=== PATIENT | male | born 1980 ===

== ENCOUNTER 2020-07-30 09:15 | Outpatient (REF) | payer OTHER, SELFPAY ==
--- NOTE | 2020-07-30 09:39 | XR_ITS ---
EXAMINATION: XR LUMBOSACRAL SPINE CLINICAL INFORMATION: Lower back pain COMPARISON: None TECHNIQUE: Three views of the lumbosacral spine. FINDINGS: No fracture or subluxation. Vertebral body height and alignment is maintained. Disc spaces are maintained. The sacroiliac joints are symmetric. The sacrum appears intact. The visualized bowel gas pattern is unremarkable. XR/XR lumbar spine 2-3V IMPRESSION: Normal appearance of the lumbar spine.
[2020-07-30 09:55] LABS: MANUAL DIFF FLAG NO
[2020-07-30 10:02] LABS: Basophils Absolute Auto 0.1 X10*3/uL (0.0-0.2); Basophils Percent Auto 0.8 % (0-2); Eosinophils Absolute Auto 0.2 X10*3/uL (0.0-0.4); Hematocrit 47.4 % (42-52); Imm Gran Abs Auto 0.01 X10*3/uL (0.00-0.03); Imm Gran Pct Auto 0.2 % (0.0-0.4); Lymphocytes Absolute Auto 2.6 X10*3/uL (1.2-4.9); Lymphocytes Percent Auto 42.4 % (20-40); Mean Corpuscular HGB Conc 35.9 g/dl (31.0-36.0); Mean Corpuscular Hemoglobin 31.1 pg (27.0-33.0); Mean Corpuscular Volume 86.8 fL (80-98); Mean Platelet Volume 10.5 fL (9.4-12.4); Monocytes Absolute Auto 0.4 X10*3/uL (0.1-1.2); Neutrophils Absolute Auto 2.8 X10*3/uL (2.0-8.3); Neutrophils Percent Auto 46.6 % (45-73); Platelet Count 264 X10*3/uL (160-400); Red Blood Count 5.46 X10*6/uL (4.60-5.80)
[2020-07-30 10:20] LABS: Glucose Urine UA NEG (NEG); Leukocyte Esterase Urine NEG (NEG); Nitrite Urine NEG (NEG); Specific Gravity - Urine 1.025 (1.005-1.025); Urine Blood TRACE (NEG); Urine Ketones NEG (NEG); Urine Protein NEG (NEG-TRACE)
[2020-07-30 10:23] LABS: Appearance Urine HAZY; Color Urine YELLOW
[2020-07-30 10:47] LABS: Alanine Aminotransferase 24 U/L (0-40); Albumin Level 4.4 g/dL (3.5-5.0); Alkaline Phosphatase 88 U/L (39-117); Anion Gap 12 (12-20); Aspartate Amino Transferase 22 U/L (5-37); Bilirubin Total 0.8 mg/dL (0.0-1.0); Blood Urea Nitrogen 11 mg/dL (9-16); Carbon Dioxide 26 mmol/L (22-29); Chloride 107 mmol/L (96-108); Cholesterol 181 mg/dL; Estimated Glomerular Filt Rate > 60; Glucose Fasting 93 mg/dL (60-99); HDL Cholesterol 27 mg/dL; LDL Cholesterol Calculated 114 mg/dl; Potassium 4.4 mmol/l (3.3-5.1); Sodium 141 mmol/L (135-145); Total Protein 7.5 g/dL (6.5-8.0); Triglycerides 204 mg/dL
[2020-07-30 10:53] LABS: Mucus Urine 2+ /LPF; RBC Urine 0-2 /HPF (0); Squamous Epithelial Cell Urine 1+ /LPF; WBC Urine 0 /HPF (0-4)
== END 2020-07-30 09:16 | disposition home or self-care (01) ==
LOC: HO.LAB 09:15
PROVIDERS: PCP Internal Medicine; Visit Provider Internal Medicine
DX: M54.5 Low back pain (principal); E78.5 Hyperlipidemia, unspecified; R30.0 Dysuria
CPT/HCPCS: 36415; 72100; 80053; 80061; 81001; 85025

== ENCOUNTER 2020-08-25 08:00 | Outpatient (RCR) | payer OTHER, SELFPAY ==
--- NOTE | 2020-09-10 15:07 | MHC.PT.DC ---
[facility] [place] Office [place] Office [place] Office [address] Atiya Saunders [address] [phone] F: [phone] F: [phone] F: [phone] F: [phone] Physical Therapy Discharge Report Diagnosis: LUMBAGO WITH SCIATICA RIGHT SIDE M54.41 OTHER CHRONIC PAIN G 89.29 Date of Surgery: NA Date of Evaluation: 08/11/20 Date of Discharge: Treatments to Date: 3 Cancellations to Date: 1 No Shows to Date: 4 Discharge Status: Visit Non-compliance Discharge Summary: NO SHOWED FOR 4 VISITS AND IS DCed PER DEPARTMENT POLICY Electronically signed by: Nancy Gan PT, DPT Please sign and return to therapist. Thank you for your referral.
== END 2020-09-10 15:09 | disposition other institution (70) ==
LOC: HO.PT 08:00
PROVIDERS: PCP Internal Medicine; Visit Provider Internal Medicine
DX: M54.5 Low back pain (principal)
CPT/HCPCS: 97014; 97110; 97140; 97162

== ENCOUNTER → 2020-11-18 13:56 | Outpatient (BNVA) | payer OTHER, SELFPAY | PROVIDERS: PCP Internal Medicine; Referring Provider Internal Medicine; Visit Provider Surgery | DX: D17.9 Benign lipomatous neoplasm, unspecified (principal) | CPT/HCPCS: 99202 ==

== ENCOUNTER 2020-12-03 07:53 | Outpatient (REF) | payer OTHER, SELFPAY ==
[2020-12-03 07:59] VITALS: BP 119/72; PULSE 74; RESP 16; TEMP 36.3; O2SAT 97
[2020-12-03 08:00] VITALS: BMI 28.6
[2020-12-03 08:44] VITALS: BP 114/60; PULSE 72; RESP 16; O2SAT 96
--- NOTE | 2020-12-03 08:44 | P.BOP_ITS ---
Brief Operative Note Date of Service: 12/03/20 Pre-op diagnosis: multiple lipomas lower back, right flank Post-op diagnosis: same Procedure: exc of multiple lipomas, lower back, right flank uner local anesthesia Surgeon: Miki Ward MD Anesthesia: local Was an General Office Worker used for this Procedure?: No Estimated blood loss (mL): 3 Pathology: other (lipomas) Condition: stable Disposition: other (home)
--- NOTE | 2020-12-03 08:46 | P.OP_ITS ---
Operative Note Operative Note Date of Service: 12/03/20 Narrative: Preop diagnosis: Multiple lipomas, lower back and right flank Postop diagnosis: Multiple lipomas, lower back x2 and right flank x1 Procedure: Excision of multiple lipomas, lower back x2 and right flank x1, under local anesthesia Surgeon: Miki Ward MD The patient is a 40-year-old male with multiple lipomas on the lower back in the right flank. He had 2 lipomatous masses on the left lower back and 1 lipomatous mass on the right flank that he wanted removed. He understood the technique of excision under local anesthesia. He was aware of the risks, benefits, and alternatives. He was brought to the minor procedure room. He was placed in prone position. He pointed to 2 lipomatous masses in the lower back a little to the left side. This area was prepped and draped. This to lipomas were adjacent to each other. I infiltrated the planned line of incisions. I made an incision in the skin using blade 15. And this was carried down through the full-thickness of skin and part of subcutaneous fat. Proceeded to gently dissect with the Metzenbaum scissors through the subcutaneous fat until I was able to visualize a lipomatous mass. I sharply dissected this off of the rest of subcu layer. I continued to dissect posteriorly until was able to deliver this lipomatous mass. This I was about 1.5 cm in diameter and was very cool in shape. There was note of an adjacent lipoma more laterally. I made incision in the skin overlying pegs lipomatous mass using blade 15 it was carried down to the full-thickness skin and part of the subcutaneous fat. I gently dissected with Metzenbaum scissors until was able to clearly see a lipomatous mass. I sharply dissected this of the rest of subcutaneous layer with Metzenbaum scissors. I proceeded to dissect posteriorly until was able to deliver this. This was a more of a lobulated lipoma, about 5 cm x 3 cm. I closed both incisions with multiple interrupted of 3-0 sutures. Dressings were applied The patient was then placed in left lateral decubitus position to expose the right flank. The lipoma on the right flank was localized and was prepped and draped lidocaine 1% was used for local anesthesia. I made an incision in the skin overlying this lipoma using blade 15. This carried down through the full- thickness skin and part of subcutaneous fat until was able to visualize the lipoma. I sharply dissected this off of the rest of the subcutaneous layer until this was delivered and sent as specimen. The lipomas about 1.5 cm in diameter and was cervical as well. I closed the incision with multiple nylon 3- 0 interrupted sutures. Dressings were applied The patient tolerated well there were no complication noted. He was given wound care instructions and will be seen in the office for removal sutures.
== END 2020-12-03 07:54 | disposition home or self-care (01) ==
LOC: HO.MS 07:53
PROVIDERS: PCP Internal Medicine; Visit Provider Surgery
PROC: (CPT 21931; principal; 2020-12-03 08:00)
DX: D17.1 Benign lipomatous neoplasm of skin and subcutaneous tissue of trunk (principal)
CPT/HCPCS: 21931; 21930 ×2; 88304

== ENCOUNTER → 2020-12-16 11:43 | Outpatient (BNVA) | payer OTHER, SELFPAY | PROVIDERS: PCP Internal Medicine; Visit Provider Surgery | DX: Z48.817 Encounter for surgical aftercare following surgery on the skin and subcutaneous tissue (principal); Z87.2 Personal history of diseases of the skin and subcutaneous tissue | CPT/HCPCS: 99212 ==

== ENCOUNTER 2022-02-12 08:11 | Outpatient (REF) | payer OTHER, SELFPAY ==
[2022-02-12 08:25] LABS: MANUAL DIFF FLAG NO
[2022-02-12 08:28] LABS: Basophils Percent Auto 0.7 % (0-2); Eosinophils Absolute Auto 0.3 X10*3/uL (0.0-0.4); Eosinophils Percent Auto 4.1 % (0-4); Hematocrit 45.1 % (42.0-52.0); Hemoglobin 16.3 g/dl (14.0-18.0); Imm Gran Abs Auto 0.02 X10*3/uL (0.00-0.03); Imm Gran Pct Auto 0.3 % (0.0-0.4); Lymphocytes Absolute Auto 2.3 X10*3/uL (1.2-4.9); Lymphocytes Percent Auto 38.2 % (20-40); Mean Corpuscular HGB Conc 36.1 g/dl (31.0-36.0); Mean Corpuscular Hemoglobin 30.7 pg (27.0-33.0); Mean Corpuscular Volume 84.9 fL (80.0-98.0); Mean Platelet Volume 10.2 fL (9.4-12.4); Monocytes Absolute Auto 0.6 X10*3/uL (0.1-1.2); Neutrophils Absolute Auto 2.9 x10*3/uL (2.0-8.3); Neutrophils Percent Auto 47.7 % (45-73); Platelet Count 233 X10*3/uL (160-400); Red Blood Count 5.31 X10*6/uL (4.60-5.80); White Blood Count 6.1 X10*3/uL (4.8-10.8)
[2022-02-12 08:55] LABS: Estimated Average Glucose 97 mg/dL
[2022-02-12 08:58] LABS: Alanine Aminotransferase 42 U/L (0-40); Albumin Level 4.4 g/dL (3.5-5.0); Alkaline Phosphatase 91 U/L (39-117); Anion Gap 13 (12-20); Aspartate Amino Transferase 25 U/L (5-37); Bilirubin Total 0.6 mg/dL (0.0-1.0); Blood Urea Nitrogen 13 mg/dL (9-16); Calcium 9.2 mg/dL (8.4-10.2); Carbon Dioxide 24 mmol/L (22-29); Chloride 107 mmol/L (96-108); Cholesterol 215 mg/dL; Estimated Glomerular Filt Rate > 60; Glucose Fasting 105 mg/dL (60-99); HDL Cholesterol 23 mg/dL; Potassium 4.2 mmol/L (3.3-5.1); Sodium 140 mmol/L (135-145); Triglycerides 708 mg/dL
[2022-02-12 10:01] LABS: Appearance Urine CLEAR; Color Urine YELLOW; Glucose Urine UA NEG (NEG); Leukocyte Esterase Urine NEG (NEG); Nitrite Urine NEG (NEG); Specific Gravity - Urine 1.025 (1.005-1.025); Urine Blood NEG (NEG); Urine Ketones NEG (NEG); Urine Protein NEG (NEG-TRACE)
== END 2022-02-12 08:12 | disposition home or self-care (01) ==
LOC: HO.LAB 08:11
PROVIDERS: PCP Internal Medicine; Visit Provider Nurse Practitioner Family
DX: R35.89 Other polyuria (principal); R43.8 Other disturbances of smell and taste; E78.00 Pure hypercholesterolemia, unspecified; I10 Essential (primary) hypertension
CPT/HCPCS: 36415; 80053; 80061; 81003; 83036; 85025

== ENCOUNTER 2022-06-16 09:17 | Outpatient (REF) | payer OTHER, SELFPAY ==
--- NOTE | ~2022-06-16 | US_ITS ---
EXAMINATION: US ABDOMEN LIMITED CLINICAL INFORMATION: Umbilical hernia without obstruction or gangrene. COMPARISON: None TECHNIQUE: Real-time imaging of the umbilical region. FINDINGS: There is an umbilical hernia measuring 0.8 cm with peristalsing bowel seen within the defect. The neck measures approximately 0.7 cm wide. US/US abdomen limited IMPRESSION: Small umbilical hernia containing fat and peristalsing bowel.
== END 2022-06-16 09:18 | disposition home or self-care (01) ==
LOC: HO.US 09:17
PROVIDERS: PCP Internal Medicine; Visit Provider Internal Medicine
DX: K42.9 Umbilical hernia without obstruction or gangrene (principal)
CPT/HCPCS: 76705

== ENCOUNTER 2022-07-02 09:20 | Outpatient (REF) | payer OTHER, SELFPAY ==
[2022-07-02 09:29] LABS: MANUAL DIFF FLAG NO
[2022-07-02 10:02] LABS: Basophils Absolute Auto 0.1 X10*3/uL (0.0-0.2); Basophils Percent Auto 0.9 % (0-2); Eosinophils Absolute Auto 0.2 X10*3/uL (0.0-0.4); Eosinophils Percent Auto 3.4 % (0-4); Hematocrit 46.6 % (42.0-52.0); Hemoglobin 16.5 g/dl (14.0-18.0); Imm Gran Abs Auto 0.01 X10*3/uL (0.00-0.03); Imm Gran Pct Auto 0.2 % (0.0-0.4); Lymphocytes Absolute Auto 2.7 X10*3/uL (1.2-4.9); Lymphocytes Percent Auto 41.5 % (20-40); Mean Corpuscular HGB Conc 35.4 g/dl (31.0-36.0); Mean Corpuscular Hemoglobin 30.2 pg (27.0-33.0); Mean Corpuscular Volume 85.2 fL (80.0-98.0); Mean Platelet Volume 10.4 fL (9.4-12.4); Monocytes Absolute Auto 0.6 X10*3/uL (0.1-1.2); Monocytes Percent Auto 8.5 % (2-11); Neutrophils Percent Auto 45.5 % (45-73); Platelet Count 235 X10*3/uL (160-400); Red Blood Count 5.47 X10*6/uL (4.60-5.80); Red Cell Distribution Width 11.7 % (11.0-16.0); White Blood Count 6.5 X10*3/uL (4.8-10.8)
[2022-07-02 10:30] LABS: Alanine Aminotransferase 48 U/L (0-40); Albumin Level 4.2 g/dL (3.5-5.0); Alkaline Phosphatase 95 U/L (39-117); Anion Gap 10 (12-20); Aspartate Amino Transferase 27 U/L (5-37); Bilirubin Total 0.6 mg/dL (0.0-1.0); Blood Urea Nitrogen 11 mg/dL (9-16); Calcium 9.2 mg/dL (8.4-10.2); Carbon Dioxide 25 mmol/L (22-29); Chloride 108 mmol/L (96-108); Cholesterol 198 mg/dL; Estimated Glomerular Filt Rate > 60; Glucose Fasting 92 mg/dL (60-99); HDL Cholesterol 23 mg/dL; Potassium 4.4 mmol/L (3.3-5.1); Sodium 139 mmol/L (135-145); Total Protein 7.5 g/dL (6.5-8.0); Triglycerides 652 mg/dL
== END 2022-07-02 09:21 | disposition home or self-care (01) ==
LOC: HO.LAB 09:20
PROVIDERS: PCP Internal Medicine; Visit Provider Internal Medicine
DX: D64.9 Anemia, unspecified (principal); R42 Dizziness and giddiness; E78.5 Hyperlipidemia, unspecified
CPT/HCPCS: 36415; 80053; 80061; 85025

== ENCOUNTER 2022-12-03 07:58 | Outpatient (REF) | payer OTHER, SELFPAY ==
[2022-12-03 09:07] LABS: Alanine Aminotransferase 35 U/L (0-40); Albumin Level 4.2 g/dL (3.5-5.0); Alkaline Phosphatase 88 U/L (39-117); Anion Gap 12 (12-20); Aspartate Amino Transferase 28 U/L (5-37); Bilirubin Total 0.8 mg/dL (0.0-1.0); Blood Urea Nitrogen 12 mg/dL (9-16); Calcium 9.2 mg/dL (8.4-10.2); Carbon Dioxide 21 mmol/L (22-29); Chloride 111 mmol/L (96-108); Cholesterol 167 mg/dL; Estimated Glomerular Filt Rate > 60; Glucose Fasting 103 mg/dL (60-99); HDL Cholesterol 26 mg/dL; LDL Cholesterol Calculated 79 mg/dl; Potassium 4.3 mmol/L (3.3-5.1); Sodium 140 mmol/L (135-145); Total Protein 7.3 g/dL (6.5-8.0); Triglycerides 310 mg/dL
[2022-12-05 21:44] LABS: Antibody to SS-A Antigen <1.0 NEG AI (<1.0 NEG); Antibody to SS-B Antigen <1.0 NEG AI (<1.0 NEG)
== END 2022-12-03 07:59 | disposition home or self-care (01) ==
LOC: HO.LAB 07:58
PROVIDERS: PCP Internal Medicine; Visit Provider Internal Medicine
DX: E78.5 Hyperlipidemia, unspecified (principal); R68.2 Dry mouth, unspecified
CPT/HCPCS: 36415; 80053; 80061; 86235

== ENCOUNTER 2023-03-23 20:24 | Emergency (ER) | payer OTHER, SELFPAY ==
--- NOTE | ~2023-03-23 | CT_ITS ---
EXAMINATION: CT HEAD WITHOUT CONTRAST CLINICAL INFORMATION: Headache. Blurred vision. Dizziness. COMPARISON: None available. TECHNIQUE: Contiguous axial imaging was performed from the skull base to vertex without intravenous administration of contrast. This CT examination was performed using dose optimization techniques as appropriate, variously including the following: *Automated exposure control *Adjustment of mA and/or kV according to patient size (this includes techniques or standardized protocols for targeted exams where dose is matched to indication/reason for exam; i.e. extremities or head) *Use of iterative reconstruction technique DLP: 661 mGy-cm FINDINGS: The lateral, third and fourth ventricles are normally outlined. The cortical sulci and basal cisterns are normally outlined as well. There is no acute territorial defect, hemorrhage or midline shift. The extra-axial spaces are unremarkable. Calvarium: Intact. Maxillofacial sinuses and mastoids: Clear as visualized. CT/CT head/brain wo IV con IMPRESSION: No acute intracranial pathology.
[2023-03-23 20:40] VITALS: BP 121/83; PULSE 76; RESP 14; TEMP 37; O2SAT 98; BMI 29.6
--- NOTE | 2023-03-23 20:41 | ED.GENADULT ---
HPI - General Adult General Chief complaint: Headache Stated complaint: headache Time Seen by Provider: 03/24/23 00:22 Source: patient and family Mode of arrival: ambulatory Limitations: no limitations History of Present Illness HPI narrative: 42-year-old male with no major medical problems presents with left-sided headache. The symptoms started 3-4 days ago. The pain at its worst as a 9/10. Currently the pain is 5/10. Patient reports the pain as being worse with light but not sound. The pain does not radiate. He has had no fevers or chills. Denies any neck pain or stiffness. Symptoms are not sudden in onset. They gradually came on got progressively worse. He denies any recent trauma. Prior treatment includes ibuprofen and Tylenol. These medications did help slightly. Patient denies any focal neurologic deficit. He denies any recent sore throat, runny nose, cough, mucus production or other viral or bacterial infectious symptoms. Related Data Previous Rx's Medication Instructions Recorded loratadine 10 mg tablet 10 mg PO DAILY 90 days #90 tabs 11/21/22 qvxcbndvzx-ozahzdenwcabi-xptghsio 1 cap PO Q8H PRN pain #10 caps 03/24/23 50 mg-300 mg-40 mg capsule (Fioricet) Allergies Allergy/AdvReac Type Severity Reaction Status Date / Time No Known Allergies Allergy Verified 11/21/22 17:28 Review of Systems Review of Systems: CONSTITUTIONAL: Denies weight loss, fever and chills. HEENT: Denies changes in vision and hearing. RESPIRATORY: Denies SOB and cough. CV: Denies palpitations no CP. GI: Denies abdominal pain, nausea, vomiting and diarrhea. : Denies dysuria and urinary frequency. MSK: Denies myalgia and joint pain. SKIN: Denies rash and pruritus. NEUROLOGICAL: + headache - syncope. PSYCHIATRIC: Denies recent changes in mood. Denies anxiety and depression. All other ROS are negative unless in HPI PMFSH Past Medical History Medical History Seasonal allergic rhinitis due to pollen Overweight (BMI 25.0-29.9) Multiple lipomas Dyslipidemia Low back pain Surgical History No pertinent past surgical history Family History Family History Father Diabetes H/O ETOH abuse Mother Breast cancer Diabetes Son In good health Son In good health Social History Social History Housing: House Alcohol intake: never Patient Tobacco Use Status: Former Tobacco user Tobacco use type: Cigarette Smoked in Last 30 Days: No e-Cigarette/Vaping Use: Never Used Second Hand Smoke Exposure: No Use of substances other than those prescribed or required for medical reasons: No Advance Directives: No Advance Directives Information Provided: Yes service: No Current occupational status: employed Current occupational exposures/hazards: No Cognitive needs: No Hearing needs: No Vision needs: Yes Physical Exam ED Vital Signs: Vital Signs - 24 hr 03/23/23 20:40 03/24/23 00:19 Temperature 98.6 F 98.0 F Pulse Rate 76 67 Respiratory Rate 14 17 Blood Pressure 121/83 120/81 Pulse Oximetry 98 96 Oxygen Delivery Method Room Air Room Air BMI result Body Mass Index 29.6 GEN: Well developed, no acute distress, alert, oriented HEENT: Normocephalic, atraumatic, normal external ears, nose appears normal, no oropharyngeal edema or exudates Eyes: Normal to appearance Neck: Supple, no lymphadenopathy Respiratory: Talks in complete sentences, no respiratory distress, clear to auscultation bilaterally Cardiovascular: Regular rate and rhythm, no murmurs rubs or gallops Abdomen: Soft, nontender, nondistended, no guarding, no rebound Back: No CVA tenderness Extremities: No clubbing cyanosis or edema Neurologic: No focal neurologic deficits, cranial nerves 2-12 intact, strength is 5/5 bilaterally Skin: No rash Course Course Course Narrative: This is a rapid medical exam: Additional HPI, ROS, PE not included below will be deferred to primary provider. Patient is a 42-year-old male presenting to the emergency department with complaint of headache, blurred vision and intermittent dizziness since Monday. Has been taking Tylenol and ibuprofen without relief. Denies history of headaches/migraines. Denies chest pain or shortness of breath. Plan: EKG, labs, CT head Medical Decision Making Medical Decision Making MDM Narrative: Patient presents with acute left-sided headache. Differential diagnosis includes migraine, tension, cluster, sinus headaches. Doubt mastoiditis. He has no fever, neck pain or stiffness to suggest acute meningitis. The symptoms are not sudden in onset and doubt subarachnoid hemorrhage. At this time, there is no definite indication for imaging however this was ordered especially given the fact that he has new onset headaches. I suspect there will be no mass effect or traumatic injury. Will follow up on routine laboratory testing that was ordered previously. Patient at this time prefers to receive oral treatment for his headache and will follow up on symptoms. Differential Diagnosis Differential Diagnoses: The differential diagnosis associated with the presentation includes (See above) Admission/Observation Consideration of admission/observation: Escalation of care including admission/observation considered Lab Data MDM Lab Attestation statement: I reviewed the patient's lab results. 03/23/23 22:22 03/23/23 22:22 Labs: Lab Results 03/23/23 Range/Units 22:22 WBC 6.9 (4.8-10.8) X10*3/uL RBC 5.14 (4.60-5.80) X10*6/uL Hgb 16.1 (14.0-18.0) g/dl Hct 44.0 (42.0-52.0) % MCV 85.6 (80.0-98.0) fL MCH 31.3 (27.0-33.0) pg MCHC 36.6 H (31.0-36.0) g/dl RDW 11.6 (11.0-16.0) % Plt Count 228 (160-400) X10*3/uL MPV 10.1 (9.4-12.4) fL Immature Gran % (Auto) 0.3 (0.0-0.4) % Neut % (Auto) 46.0 (45-73) % Lymph % (Auto) 40.9 H (20-40) % [place] % (Auto) 9.0 (2-11) % Eos % (Auto) 3.2 (0-4) % Baso % (Auto) 0.6 (0-2) % Lymph # (Auto) 2.8 (1.2-4.9) X10*3/uL [place] # (Auto) 0.6 (0.1-1.2) X10*3/uL Eos # (Auto) 0.2 (0.0-0.4) X10*3/uL Baso # (Auto) 0.0 (0.0-0.2) X10*3/uL Abs Immat Gran (auto) 0.02 (0.00-0.03) X10*3/uL Absolute Neuts (auto) 3.2 (2.0-8.3) x10*3/uL Absolute Nucleated RBC 0.000 (0.0-0.012) X10*3/uL Nucleated RBC % (auto) 0.0 (0.0-0.2) /100WBC PT 11.4 (11.1-13.3) SEC INR 0.9 (0.9-1.1) Sodium 139 (135-145) mmol/L Potassium 3.8 (3.3-5.1) mmol/L Chloride 109 H (96-108) mmol/L Carbon Dioxide 18 L (22-29) mmol/L Anion Gap 16 (12-20) BUN 16 (9-16) mg/dL Creatinine 0.77 (0.5-1.4) mg/dL Estim Creat Clear Calc 126.5 Estimated GFR > 60 Random Glucose 103 (60-115) mg/dL Calcium 9.0 (8.4-10.2) mg/dL Total Bilirubin 0.3 (0.0-1.0) mg/dL AST 22 (5-37) U/L ALT 32 (0-40) U/L Alkaline Phosphatase 75 (39-117) U/L Troponin I High Sens < 2.7 (<3.5-35.0) ng/L Total Protein 8.3 H (6.5-8.0) g/dL Albumin 4.1 (3.5-5.0) g/dL Independent Interpretation I performed an independent interpretation of an: EKG (Normal sinus rhythm heart rate 72, no acute ST elevations depressions, normal EKG.) and CT Scan (Head: No acute disease process) Radiology Impression Discussion of test interpretation with radiology: I have reviewed the radiologist's reading. Radiologist Impression: CT/CT head/brain wo IV con IMPRESSION: No acute intracranial pathology. Dictated By: Michael Rios Signed By: <Electronically signed by Micahel Rios in OV> 03/23/23 9148 Independent Historian Clinical information obtained from an independent historian. History obtained from or confirmed by: Spouse Prescription Management I considered prescription management with: Pain Medication Discharge Plan Discharge Clinical Impression: Headache Patient Disposition: Home, Self-Care Instructions: Migraine Headache (ED), Acute Headache (ED) Prescriptions: New itzsnifsgg-fewxodvugtkqf-oisg [Fioricet] 50-300-40 mg capsule 1 cap PO Q8H PRN (Reason: pain) Qty: 10 0RF No Action loratadine 10 mg tablet 10 mg PO DAILY 90 Days Qty: 90 1RF Referrals: Eri Allan MD [Primary Care Provider] - 1 week
--- NOTE | 2023-03-23 20:43 | ECG_ITS ---
Test Reason : DIZZINESS Blood Pressure : / mmHG Vent. Rate : 073 BPM Atrial Rate : 073 BPM P-R Int : 146 ms QRS Dur : 092 ms QT Int : 384 ms P-R-T Axes : 032 -13 013 degrees QTc Int : 423 ms Normal sinus rhythm Normal ECG No previous ECGs available Referred By: Yoko Suarez Electronically Signed By:DEE WELDON
[2023-03-23 22:28] LABS: MANUAL DIFF FLAG NO
[2023-03-23 22:29] LABS: Basophils Percent Auto 0.6 % (0-2); Eosinophils Absolute Auto 0.2 X10*3/uL (0.0-0.4); Eosinophils Percent Auto 3.2 % (0-4); Hemoglobin 16.1 g/dl (14.0-18.0); Imm Gran Abs Auto 0.02 X10*3/uL (0.00-0.03); Imm Gran Pct Auto 0.3 % (0.0-0.4); Lymphocytes Absolute Auto 2.8 X10*3/uL (1.2-4.9); Lymphocytes Percent Auto 40.9 % (20-40); Mean Corpuscular HGB Conc 36.6 g/dl (31.0-36.0); Mean Corpuscular Hemoglobin 31.3 pg (27.0-33.0); Mean Corpuscular Volume 85.6 fL (80.0-98.0); Mean Platelet Volume 10.1 fL (9.4-12.4); Monocytes Absolute Auto 0.6 X10*3/uL (0.1-1.2); Neutrophils Absolute Auto 3.2 x10*3/uL (2.0-8.3); Platelet Count 228 X10*3/uL (160-400); Red Blood Count 5.14 X10*6/uL (4.60-5.80); Red Cell Distribution Width 11.6 % (11.0-16.0); White Blood Count 6.9 X10*3/uL (4.8-10.8)
[2023-03-23 22:42] LABS: INTERNATIONAL NORM RATIO 0.9 (0.9-1.1); Prothrombin Time 11.4 SEC (11.1-13.3)
[2023-03-23 22:50] LABS: Alanine Aminotransferase 32 U/L (0-40); Albumin Level 4.1 g/dL (3.5-5.0); Alkaline Phosphatase 75 U/L (39-117); Anion Gap 16 (12-20); Aspartate Amino Transferase 22 U/L (5-37); Bilirubin Total 0.3 mg/dL (0.0-1.0); Blood Urea Nitrogen 16 mg/dL (9-16); Carbon Dioxide 18 mmol/L (22-29); Chloride 109 mmol/L (96-108); Creatinine Clr Calc Pharmacy 126.5; Estimated Glomerular Filt Rate > 60; Glucose Random 103 mg/dL (60-115); Potassium 3.8 mmol/L (3.3-5.1); Sodium 139 mmol/L (135-145); Total Protein 8.3 g/dL (6.5-8.0)
[2023-03-23 22:54] LABS: Troponin-I High Sensitivity < 2.7 ng/L (<3.5-35.0)
[2023-03-24 00:19] VITALS: BP 120/81; PULSE 67; RESP 17; TEMP 36.7; O2SAT 96
[2023-03-24] MEDS: Ibuprofen 800 MG TABLET PO (00:51)
[2023-03-24] MEDS: Butalb/Acetamin/Caff 50/325/40 TABLET 1 TAB PO (00:51)
[2023-03-24] MEDS: Metoclopramide HCl 10 MG TABLET PO (00:51)
== END 2023-03-24 00:53 | disposition home or self-care (01) ==
PROVIDERS: Registered Nurse Emergency; Emergency Provider Emergency Medicine; PCP Internal Medicine
DX: R51.9 Headache, unspecified (principal); H53.8 Other visual disturbances; R42 Dizziness and giddiness; Z79.899 Other long term (current) drug therapy
CPT/HCPCS: 36415; 70450; 80053; 84484; 85025; 85610; 93005; 99284; 99285

== ENCOUNTER 2023-09-14 14:58 | Outpatient (AMB) | payer OTHER, SELFPAY ==
[2023-09-14 15:09] VITALS: BP 110/82; BMI 28.7
--- NOTE | 2023-09-14 15:09 | MHC.PC.OV ---
Vital Signs 09/14/23 15:09 Height 5 ft 6 in Weight 178 lb BMI 28.7 BP 110/82 Blood Pressure Location Lt brachial Position Sitting Intake Visit Reasons: Discuss cholesterol Medication Intake Note: Patient here to discuss cholesterol medication Park Maintenance Technician Required: No Accompanied by: Self / Same As Patient Allergies No Known Allergies Allergy (Verified 09/14/23 15:19) Medication List - Last Reconciled 09/14/23 by Eri Anders MD loratadine 10 mg PO DAILY 90 days Tobacco use date assessed: 09/14/23 Dental Screening Dental Screen Date: 09/14/23 Did you have a dental visit in the last 12 months?: Yes Did you have a dental problem in the last 6 months where you did not have access to dental care?: No Was dental information given to patient?: Patient has dentist HPI HPI Comments History of Present Illness Details This is a 43-year-old male with seasonal allergic rhinitis due to pollen, hypertriglyceridemia and overweight that complains severely dozing of while sitting and reading, watching TV, lying down to rest in the afternoon when circumstances permit and sitting and talking with someone with an Cozad score Scale of 12 and I will order a sleep study. Still complains of allergic rhinitis and I will add Flonase. Had elevated triglycerides but he admits having a high triglyceride diet. Labs will be ordered. He is overweight with a BMI of 28.7 and was advised to do diet and exercise. [facility] Medical History (Updated 09/14/23 @ 15:27 by Eri Anders MD) Seasonal allergic rhinitis due to pollen Overweight (BMI 25.0-29.9) Multiple lipomas Dyslipidemia Low back pain Surgical History No pertinent past surgical history Family History Father Diabetes H/O ETOH abuse Mother Breast cancer Diabetes Son In good health Son In good health Social History Housing: House Alcohol intake: never Patient Tobacco Use Status: Former Tobacco user Tobacco use type: Cigarette e-Cigarette/Vaping Use: Never Used Second Hand Smoke Exposure: No service: No Current occupational status: employed Current occupational exposures/hazards: No Cognitive needs: No Hearing needs: No Vision needs: Yes Questionnaire PHQ-9 Over the last 2 weeks, how often have you been bothered by any of the following problems? 1. Little interest or pleasure in doing things: not at all 2. Feeling down, depressed, or hopeless: not at all 3. Trouble falling or staying asleep, or sleeping too much: not at all 4. Feeling tired or having little energy: not at all 5. Poor appetite or overeating: not at all 6. Feeling bad about yourself - or that you are a failure or have let yourself or your family down: not at all 7. Trouble concentrating on things, such as reading the newspaper or watching television: not at all 8. Moving or speaking so slowly that other people could have noticed. Or the opposite - being so fidgety or restless that you have been moving around a lot more than usual: not at all 9. Thoughts that you would be better off or of hurting yourself in some way: not at all Total score: 0 Depression Screening Interpretation: Negative Depression Screening Done: Yes 24866 - PHQ-9 Billing: Yes Source: Developed by Drs. Michael Manzanares, Cher Weeks, Luis Blanco and colleagues, with an educational chad from [employer]. Thrive Questionnaire Date Thrive assessed: 09/14/23 I am a: Patient What is your living situation today?: I have a steady place to live Within the past 12 months, did the food you bought not last and you didn't have the money to get more?: Never true Within the past 12 months, did you worry whether your food would run out before you got money to buy more?: Never true Do you have trouble paying for medicines?: No Do you have trouble getting transportation to medical appointments?: No Do you have trouble paying your heating and electricity bill?: No Do you have trouble taking care of your child, family member or friend?: No Do you have trouble with day-to-day activities such as bathing, preparing meals, shopping, managing finances, etc.?: No Are you currently unemployed and looking for a job?: No Are you interested in more education?: No Please select the resources that you would like help with: None Currently or been in a relationship where the following occur: no concerns reported THRIVE Score: 0 AUDIT C Alcohol Use Questionnaire (AUDIT-C) 1. How often do you have a drink containing alcohol?: Never Total Score: 0 CHEMO-7 AMB Questionnaire CHEMO-7 Date CHEMO - 7 assessed: 09/14/23 Feeling nervous, anxious, or on edge: 0 = Not at all Not being able to stop or control worryin = Not at all Worrying too much about different things: 0 = Not at all Trouble relaxin = Not at all Being so restless that it is hard to sit still: 0 = Not at all Becoming easily annoyed or irritable: 0 = Not at all Feeling afraid as if something awful might happen: 0 = Not at all Total CHEMO-7 score (0-4 normal; 5-9 mild; 10-14 moderate; 15-21 severe): 0 Source: Developed by Drs. Michael Manzanares, Cher Weeks, Luis Blanco and colleagues, with an educational chad from [employer]. CHEMO-7 Assessment Billing CHEMO-7 Assessment Tool: CHEMO-7 Assessment 89501 Review of Systems Const All systems reviewed & are unremarkable except as noted in HPI and below Eyes Reports no additional complaints, Denies change in vision and Denies other visual disturbances Card Denies chest pain at rest, Denies chest pain with activity, Denies edema, Denies irregular heart rhythm, Denies claudication, Denies dyspnea, Denies dyspnea on exertion, Denies orthopnea, Denies paroxysmal nocturnal dyspnea and Denies slow heart rate Resp Denies cough, Denies dyspnea and Denies dyspnea on exertion GI Denies abdominal pain, Denies change in bowel habits, Denies excessive flatus, Denies nausea and Denies vomiting Denies urinary hesitancy, Denies urinary incontinence and Denies urinary urgency Musc Denies abnormal gait, Denies atrophy, Denies deformity and Denies limited range of motion Skin/Breast Denies bleeding lesions, Denies changing lesions and Denies rash Neuro Denies abnormal gait and Denies lack of coordination Physical exam (Primary Care) Vital Signs: Last Vital Signs BP 110/82 09/14/23 15:09 BMI result Body Mass Index 28.7 Tobacco/Smoking Status: Tobacco use Status Tobacco use date assessed 09/14/23 09/14/23 15:14 Patient Tobacco Use Status Former Tobacco user 09/14/23 15:14 Tobacco use type Cigarette 09/14/23 15:14 e-Cigarette/Vaping Use Never Used 09/14/23 15:14 PHQ-9: PHQ-9 Score PHQ-9: Total score 0 09/14/23 15:14 Depression Screening Interpretation: Negative Thrive Assessment: Date of Thrive Assessment Date Thrive assessed 09/14/23 09/14/23 15:14 Currently or been in a relationship where the following occur: no concerns reported Neck Neck: Yes normal visual inspection and Yes supple Resp Effort & Inspection: normal respiratory effort Auscultation: clear to auscultation bilaterally Cardio Jugular venous distension: no JVD Rate: regular rate Rhythm: regular rhythm Heart sounds: S1 normal heart sound present and S2 normal heart sound present Extrem General: Yes full ROM Assessment and Plan Assessment & Plan (1) Hypertriglyceridemia: Code(s): E78.1 - Pure hyperglyceridemia Plan: Repeat lipid panel. Start low triglyceride diet. (2) Daytime somnolence: Code(s): R40.0 - Somnolence Plan: Sleep study ordered. (3) Seasonal allergic rhinitis due to pollen: Code(s): J30.1 - Allergic rhinitis due to pollen Plan: Continue loratadine. Start Flonase. (4) Overweight (BMI 25.0-29.9): Code(s): E66.3 - Overweight Plan: Start diet and exercise. Orders: Orders Lipid Panel Today E78.5 - Hyperlipidemia, unspecified Comprehensive [place]. Panel Fast Today E78.1 - Pure hyperglyceridemia RT home sleep study Today R40.0 - Somnolence Medications: New fluticasone propionate 50 mcg/actuation (Flonase Allergy Relief) administer into each nostril 1 spray intranasal DAILY 30 days 16 grams 1RF J30.9 - Allergic rhinitis, unspecified Refilled loratadine 10 mg PO DAILY 90 days 90 tabs 1RF Coding Level of Care Code Est Pt Level 4 (01647) Diagnoses Hypertriglyceridemia E78.1 Daytime somnolence R40.0 Seasonal allergic rhinitis due to pollen J30.1 Overweight (BMI 25.0-29.9) E66.3 Additional Codes CHEMO-7 Assessment Billing - CHEMO-7 Assessment Tool: CHEMO-7 Assessment 76976 ([id number]) Time Spent (min) 23
== END 2023-09-14 15:29 | disposition home or self-care (01) ==
PROVIDERS: PCP Internal Medicine; Visit Provider Internal Medicine
DX: E78.1 Pure hyperglyceridemia (principal); R40.0 Somnolence; J30.1 Allergic rhinitis due to pollen; E66.3 Overweight
CPT/HCPCS: 99214

== ENCOUNTER 2023-09-30 09:12 | Outpatient (REF) | payer OTHER, SELFPAY ==
[2023-09-30 09:58] LABS: Alanine Aminotransferase 32 U/L (0-40); Albumin Level 4.2 g/dL (3.5-5.0); Alkaline Phosphatase 87 U/L (39-117); Anion Gap 9 (12-20); Aspartate Amino Transferase 26 U/L (5-37); Bilirubin Total 0.6 mg/dL (0.0-1.0); Blood Urea Nitrogen 10 mg/dL (9-16); Carbon Dioxide 26 mmol/L (22-29); Chloride 108 mmol/L (96-108); Cholesterol 197 mg/dL (<200); Estimated Glomerular Filt Rate > 60; Glucose Fasting 90 mg/dL (60-99); HDL Cholesterol 27 mg/dL (>40); LDL Cholesterol Calculated 97 mg/dL (<100); Potassium 4.2 mmol/L (3.3-5.1); Sodium 139 mmol/L (135-145); Total Protein 7.5 g/dL (6.5-8.0); Triglycerides 368 mg/dL (<150)
== END 2023-09-30 09:13 | disposition home or self-care (01) ==
LOC: HO.LAB 09:12
PROVIDERS: PCP Internal Medicine; Visit Provider Internal Medicine
DX: E78.5 Hyperlipidemia, unspecified (principal); E78.1 Pure hyperglyceridemia
CPT/HCPCS: 36415; 80053; 80061

== ENCOUNTER → 2023-10-23 11:01 | Outpatient (REF) | payer OTHER, SELFPAY | LOC: HO.SL 11:01 | PROVIDERS: PCP Internal Medicine; Visit Provider Internal Medicine | DX: R40.0 Somnolence (principal); G47.33 Obstructive sleep apnea (adult) (pediatric) | CPT/HCPCS: 95806 ==

== ENCOUNTER → 2023-10-23 11:10 | Outpatient (BNV) | payer OTHER, SELFPAY | PROVIDERS: PCP Internal Medicine; Visit Provider Internal Medicine | DX: G47.33 Obstructive sleep apnea (adult) (pediatric) (principal) | CPT/HCPCS: 95806 ==

== ENCOUNTER 2023-11-15 14:26 | Outpatient (AMB) | payer OTHER, SELFPAY ==
--- NOTE | 2023-11-15 14:31 | MHC.OFFVIS ---
Vital Signs 11/15/23 14:32 Height 5 ft 5 in Weight 179 lb 10.828 oz BMI 29.9 BP 102/64 Blood Pressure Location Lt brachial Position Sitting Pulse 88 Pulse Source Doppler Pulse Oximetry (%) 97 Oxygen Delivery Method Room Air Intake Visit Reasons: yobani Investment Banking Analyst Required: Yes Investment Banking Analyst Name: Adriana Coley Radha Allergies No Known Allergies Allergy (Verified 11/15/23 15:00) Medication List - Last Reconciled 11/15/23 by Madison Mckinney MD CPAP (CPAP Machine/Device) autoPAP 6-20 cmH2O fluticasone propionate 50 mcg/actuation (Flonase Allergy Relief) 1 spray intranasal DAILY 30 days loratadine 10 mg PO DAILY 90 days Do you need a note to return to daycare/school/sports/work: No HPI HPI yobani: Details: This 43 years old Estonian-speaking gentleman has been referred for management of his sleep apnea. He gives history of gaining a few lb of weight in the last 5 years. Since about 5 years ago he has had difficulty in sleeping at night. He wakes up frequently with gasping like feeling, and ends up going to the bathroom a few times during the night. He remains tired and somewhat sleepy during the daytime. 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 When he comes home he has urge to go to sleep. He has had overbite of his upper teeth, has been treated with braces in the past without much improvement. His the home-based sleep study was done recently which is grossly abnormal. [facility] Medical History (Updated 11/15/23 @ 15:13 by Madison Mckinney MD) Retrognathia Seasonal allergic rhinitis due to pollen Overweight (BMI 25.0-29.9) Multiple lipomas Dyslipidemia Low back pain Surgical History No pertinent past surgical history Family History Father Diabetes H/O ETOH abuse Mother Breast cancer Diabetes Son In good health Son In good health Social History Housing: House Alcohol intake: never Patient Tobacco Use Status: Former Tobacco user Tobacco use type: Cigarette e-Cigarette/Vaping Use: Never Used Second Hand Smoke Exposure: No service: No Current occupational status: employed Current occupational exposures/hazards: No Cognitive needs: No Hearing needs: No Vision needs: Yes Review of Systems Const All systems reviewed & are unremarkable except as noted in HPI and below Eyes Reports no additional complaints ENT Reports no additional complaints and Reports nasal congestion (Intermittent) Card Denies chest pain, Denies irregular heart rhythm and Denies leg edema Resp Reports wheezing (Occasional) GI Reports no additional complaints Reports no additional complaints Musc Reports no additional complaints Skin/Breast Reports system reviewed and no additional complaints, except as documented Neuro Reports no additional complaints Psych Reports no additional complaints Endo Reports no additional complaints Aller/Immun Reports wheezing (Occasional) Physical Exam Vital Signs: Last Vital Signs Pulse 88 11/15/23 14:32 BP 102/64 11/15/23 14:32 Pulse Ox 97 11/15/23 14:32 Oxygen Delivery Method Room Air 11/15/23 14:32 BMI result Body Mass Index 29.9 Const General: healthy appearing, comfortable, no acute distress, alert and awake Orientation/consciousness: patient oriented x3 HEENT Head: Yes normal to inspection General nose exam: No nasal polyps present and No nasal discharge present Face and sinus: Yes sinuses nontender Mouth: oropharynx normal Teeth and gingiva: other (Retroganthia of the lower jaw) Throat: Yes posterior oropharynx normal Eyes General: appearance normal, both eyes and all related structures Neck Neck: Yes normal visual inspection, Yes no lymphadenopathy, Yes trachea midline and Yes no JVD Thyroid: Thyroid normal Chest Chest palpation & inspection: normal inspection of the chest, normal palpation of entire chest wall and no tenderness Resp Effort & Inspection: normal respiratory effort Auscultation: clear to auscultation bilaterally, no crackles and no wheezes Cardio Palpation: normal PMI Rate: regular rate Rhythm: regular rhythm Heart sounds: no gallops and no murmurs Peripheral pulses: Peripheral pulses 2+ throughout GI Palpation (GI): Soft to palpation, Tenderness to palpation present (GI), No hepatosplenomegaly present and Palpable mass present Auscultation: normal bowel sounds Back/Spine/Pelvis Thoracic/Lumbar Spine: thoracic and lumbar spine normal to inspection Skin General skin exam: no rashes or lesions noted Neuro General: patient oriented x3 and no focal motor deficits Cranial nerves: Yes CN's II-XII intact bilaterally Extrem General: Yes normal to inspection, Yes no clubbing, cyanosis or edema and Yes no calf tenderness Psych Appearance: grossly normal and well kempt Speech and movement: Normal speech and movement present Results Reviewed Results Reviewed: Home-based sleep study on 10/24/2023. Total sleep time AHI 25. Most of the sleep was in supine position. Mild nocturnal hypoxemia with average O2 sat 93% and O2 sat below 88% for 8 minutes Assessment & Plan Assessment & Plan (1) YOBANI (obstructive sleep apnea): Comment: Patient has moderately severe obstructive sleep apnea. It seems to be primarily due to retroganthia of the lower jaw, And partly contributed by being overweight. Code(s): G47.33 - Obstructive sleep apnea (adult) (pediatric) Category: Medical Plan: The findings of sleep study explained to the patient. He would benefit from use of CPAP therapy. The CPAP therapy is explained in detail. We have send the order is CPAP device, with the auto PAP setting of 6-20 cm. He is also instructed to lose weight and even if he could lose 5-10 lb of weight it will be helpful. (2) Allergic rhinitis: Comment: He has the intermittent seasonal allergic rhinitis, which is controlled at this time. Code(s): J30.9 - Allergic rhinitis, unspecified Category: Medical Plan: Flonase-52 sprays in each nostril daily especially before putting on the CPAP. May use loratadine 10 mg once a day p.r.n. 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 Coding Level of Care Code New Pt Level 3 (66841) Diagnoses YOBANI (obstructive sleep apnea) G47.33 Allergic rhinitis J30.9 Retrognathia M26.19
[2023-11-15 14:32] VITALS: BP 102/64; PULSE 88; O2SAT 97; BMI 29.9
== END 2023-11-15 14:52 | disposition home or self-care (01) ==
PROVIDERS: PCP Internal Medicine; Visit Provider Internal Medicine
DX: G47.33 Obstructive sleep apnea (adult) (pediatric) (principal); J30.9 Allergic rhinitis, unspecified; M26.19 Other specified anomalies of jaw-cranial base relationship
CPT/HCPCS: 99213

== ENCOUNTER → 2023-11-15 14:26 | Outpatient (BNVA) | payer OTHER, SELFPAY | PROVIDERS: PCP Internal Medicine; Visit Provider Internal Medicine | DX: G47.33 Obstructive sleep apnea (adult) (pediatric) (principal); M26.19 Other specified anomalies of jaw-cranial base relationship; J30.9 Allergic rhinitis, unspecified | CPT/HCPCS: 99212 ==

== ENCOUNTER 2024-01-22 15:07 | Outpatient (AMB) | payer OTHER, SELFPAY ==
--- NOTE | 2024-01-22 15:14 | MHC.PC.OV ---
Vital Signs 01/22/24 15:15 Height 5 ft 5 in Weight 181 lb BMI 30.1 BP 112/80 Blood Pressure Location Lt brachial Position Sitting Intake Visit Reasons: Annual exam Intake Note: Patient here for an annual physical exam Sediment Remediation Consultant Required: No Accompanied by: Self / Same As Patient Allergies No Known Allergies Allergy (Verified 01/22/24 15:29) Medication List - Last Reconciled 01/22/24 by Eri Anders MD CPAP (CPAP Machine/Device) autoPAP 6-20 cmH2O Tobacco use date assessed: 09/14/23 Dental Screening Dental Screen Date: 09/14/23 HPI HPI Comments History of Present Illness Details This is a 43-year-old male that comes for his physical exam. No chest pain or shortness on breath. Compliant with CPAP machine. He complains of urinary dribbling and would like to see Urology. Has an umbilical hernia and I will order an ultrasound. Also complains of fatigue and tiredness. [facility] Medical History (Updated 01/22/24 @ 15:37 by Eri Anders MD) Retrognathia Seasonal allergic rhinitis due to pollen Overweight (BMI 25.0-29.9) Multiple lipomas Dyslipidemia Low back pain Surgical History No pertinent past surgical history Family History Father Diabetes H/O ETOH abuse Mother Breast cancer Diabetes Son In good health Son In good health Social History Housing: House Alcohol intake: never Patient Tobacco Use Status: Former Tobacco user Tobacco use type: Cigarette e-Cigarette/Vaping Use: Never Used Second Hand Smoke Exposure: No service: No Current occupational status: employed Current occupational exposures/hazards: No Cognitive needs: No Hearing needs: No Vision needs: Yes Questionnaire Thrive Questionnaire Date Thrive assessed: 09/14/23 CHEMO-7 AMB Questionnaire CHEMO-7 Date CHEMO - 7 assessed: 09/14/23 Source: Developed by Drs. Michael Manzanares, Cher Weeks, Luis Blanco and colleagues, with an educational chad from [employer]. Review of Systems Const All systems reviewed & are unremarkable except as noted in HPI and below Reports fatigue Card Denies chest pain at rest, Denies chest pain with activity, Denies edema, Denies irregular heart rhythm, Denies claudication, Denies dyspnea, Denies dyspnea on exertion, Denies orthopnea, Denies paroxysmal nocturnal dyspnea and Denies slow heart rate Resp Denies cough, Denies dyspnea and Denies dyspnea on exertion GI Denies abdominal pain, Denies change in bowel habits, Denies excessive flatus, Denies nausea and Denies vomiting Reports difficulty urinating, Denies urinary hesitancy, Denies urinary incontinence and Denies urinary urgency Musc Reports back pain, Denies atrophy, Denies deformity and Denies limited range of motion Skin/Breast Denies bleeding lesions, Denies changing lesions and Denies rash Endo Reports fatigue Physical exam (Primary Care) Vital Signs: Last Vital Signs BP 112/80 01/22/24 15:15 BMI result Body Mass Index 30.1 BMI Assessment/Plan discussion: High BMI High, discussed plan: lifestyle, weight reduction, dietary and physical activity Tobacco/Smoking Status: Tobacco use Status Tobacco use date assessed 09/14/23 01/22/24 15:18 Patient Tobacco Use Status Former Tobacco user 01/22/24 15:18 Tobacco use type Cigarette 01/22/24 15:18 e-Cigarette/Vaping Use Never Used 01/22/24 15:18 Thrive Assessment: Date of Thrive Assessment Date Thrive assessed 09/14/23 01/22/24 15:18 [facility] Head: Yes normal to inspection, Yes normocephalic and Yes atraumatic Ears: external ears normal Eyes General: appearance normal, both eyes and all related structures Eyelids: Yes eyelids normal Conjunctivae: conjunctivae normal Neck Neck: Yes normal visual inspection and Yes supple Resp Effort & Inspection: normal respiratory effort Auscultation: clear to auscultation bilaterally Cardio Jugular venous distension: no JVD Rate: regular rate Rhythm: regular rhythm Heart sounds: S1 normal heart sound present and S2 normal heart sound present GI Inspection: Yes normal to inspection Palpation (GI): Soft to palpation, nontender and Hernia present umbilical Auscultation: normal bowel sounds Skin General skin exam: no rashes or lesions noted Neuro General: no focal motor deficits Extrem General: Yes full ROM Psych Appearance: grossly normal Assessment and Plan Assessment & Plan (1) Physical exam: Comment: Due for labs. UTD dental exam. Due for eye exam, he will call. Code(s): Z00.00 - Encounter for general adult medical examination without abnormal findings Plan: Repeat in a year. (2) Urinary dribbling: Code(s): N39.43 - Post-void dribbling Plan: Referred to urology. (3) Fatigue: Code(s): R53.83 - Other fatigue Plan: Labs order. Orders: Orders Vitamin D 25-OH Total Today E55.9 - Vitamin D deficiency, unspecified, R53.83 - Other fatigue Complete Blood Count Auto Diff Today R53.83 - Other fatigue Lipid Panel Today E78.5 - Hyperlipidemia, unspecified Comprehensive [place]. Panel Fast Today Z00.00 - Encounter for general adult medical examination without abnormal findings US abdomen limited Today K42.9 - Umbilical hernia without obstruction or gangrene Thyroid Stimulating Hormone Today R53.83 - Other fatigue Testosterone, Free/Total Today R53.83 - Other fatigue Vitamin B12 and Folate Today E53.8 - Deficiency of other specified B group vitamins, R53.83 - Other fatigue Referrals Urology Referral N39.43 - Post-void dribbling Coding Level of Care Code Est Pt Level 3 (32872) Est Pt Prev Care 40-64y(57181) Diagnoses Physical exam Z00.00 Urinary dribbling N39.43 Fatigue R53.83 Time Spent (min) 32
[2024-01-22 15:15] VITALS: BP 112/80; BMI 30.1
== END 2024-01-22 15:51 | disposition home or self-care (01) ==
PROVIDERS: PCP Internal Medicine; Visit Provider Internal Medicine
DX: Z00.00 Encounter for general adult medical examination without abnormal findings (principal); N39.43 Post-void dribbling; R53.83 Other fatigue
CPT/HCPCS: 99213; 99396

== ENCOUNTER 2024-01-27 08:28 | Outpatient (REF) | payer OTHER, SELFPAY ==
[2024-01-27 08:39] LABS: MANUAL DIFF FLAG NO
[2024-01-27 08:52] LABS: Basophils Absolute Auto 0.1 X10*3/uL (0.0-0.2); Basophils Percent Auto 0.8 % (0-2); Eosinophils Absolute Auto 0.2 X10*3/uL (0.0-0.4); Eosinophils Percent Auto 2.7 % (0-4); Hematocrit 46.8 % (42.0-52.0); Imm Gran Abs Auto 0.02 X10*3/uL (0.00-0.03); Imm Gran Pct Auto 0.3 % (0.0-0.4); Lymphocytes Absolute Auto 2.8 X10*3/uL (1.2-4.9); Lymphocytes Percent Auto 44.7 % (20-40); Mean Corpuscular HGB Conc 36.3 g/dl (31.0-36.0); Mean Corpuscular Hemoglobin 31.3 pg (27.0-33.0); Mean Corpuscular Volume 86.2 fL (80.0-98.0); Mean Platelet Volume 10.6 fL (9.4-12.4); Monocytes Absolute Auto 0.5 X10*3/uL (0.1-1.2); Monocytes Percent Auto 7.4 % (2-11); Neutrophils Absolute Auto 2.8 x10*3/uL (2.0-8.3); Neutrophils Percent Auto 44.1 % (45-73); Platelet Count 243 X10*3/uL (160-400); Red Blood Count 5.43 X10*6/uL (4.60-5.80); Red Cell Distribution Width 11.9 % (11.0-16.0); White Blood Count 6.4 X10*3/uL (4.8-10.8)
[2024-01-27 09:39] LABS: Alanine Aminotransferase 36 U/L (0-40); Albumin Level 4.3 g/dL (3.5-5.0); Alkaline Phosphatase 90 U/L (39-117); Anion Gap 12 (12-20); Aspartate Amino Transferase 22 U/L (5-37); Bilirubin Total 0.4 mg/dL (0.0-1.0); Blood Urea Nitrogen 9 mg/dL (9-16); Calcium 9.3 mg/dL (8.4-10.2); Carbon Dioxide 25 mmol/L (22-29); Chloride 108 mmol/L (96-108); Cholesterol 198 mg/dL (<200); Estimated Glomerular Filt Rate > 60; Glucose Fasting 93 mg/dL (60-99); HDL Cholesterol 26 mg/dL (>40); Potassium 4.1 mmol/L (3.3-5.1); Sodium 141 mmol/L (135-145); Total Protein 7.7 g/dL (6.5-8.0); Triglycerides 640 mg/dL (<150)
[2024-01-27 09:55] LABS: Thyroid Stimulating Hormone 1.65 uIU/mL (0.32-4.0); Vitamin D 25-OH Total 20.9 ng/mL (>30)
[2024-01-27 10:57] LABS: Folate 13.9 ng/mL (> or = 4.0); Vitamin B12 768 pg/mL (200-900)
[2024-02-01 21:49] LABS: Testosterone, Free 64.5 pg/mL (35.0-155.0); Testosterone, Total 258 ng/dL (250-1100)
== END 2024-01-27 08:29 | disposition home or self-care (01) ==
LOC: HO.LAB 08:28
PROVIDERS: PCP Internal Medicine; Visit Provider Internal Medicine
DX: Z00.00 Encounter for general adult medical examination without abnormal findings (principal); E78.5 Hyperlipidemia, unspecified; R53.83 Other fatigue; E53.8 Deficiency of other specified B group vitamins; E55.9 Vitamin D deficiency, unspecified
CPT/HCPCS: 36415; 80053; 80061; 82306; 82607; 82746; 84402; 84403; 84443; 85025

== ENCOUNTER 2024-01-29 14:22 | Outpatient (AMB) | payer OTHER, SELFPAY ==
[2024-01-29 14:34] VITALS: BP 102/68; PULSE 78; O2SAT 97; BMI 30.3
--- NOTE | 2024-01-29 14:34 | MHC.OFFVIS ---
Vital Signs 01/29/24 14:34 Height 5 ft 5 in Weight 181 lb 14.102 oz BMI 30.3 BP 102/68 Blood Pressure Location Lt brachial Position Sitting Pulse 78 Pulse Source Pulse Oximeter Pulse Oximetry (%) 97 Oxygen Delivery Method Room Air Intake Visit Reasons: Obstructive sleep apnea Intake Note: pt is here for follow up , and states no issues with cpap, sometimes it falls off [employer] Room Required: No Allergies No Known Allergies Allergy (Verified 01/29/24 15:04) Medication List - Last Reconciled 01/29/24 by Madison Mckinney MD cholecalciferol (vitamin D3) 25 mcg PO DAILY 90 days CPAP (CPAP Machine/Device) autoPAP 6-20 cmH2O fenofibrate 54 mg PO DAILY 90 days HPI HPI Obstructive sleep apnea: Details: This 43 years old gentleman was recently diagnosed to have obstructive sleep apnea and has been started on the CPAP therapy. He is trying to use the CPAP every night. However for some nights he was out of town and could not use it, so his usage remains suboptimal, 73% of the nights. Also when he comes home he takes nap for 1 or 2 hours and at that time does not use the CPAP. His sleep at nighttime is only about 3-4 hours, when he does use the CPAP, but it is not 4 hours or more. Overall during the daytime he feels better and denies any daytime sleepiness. COUNTS INCLUDE 234 BEDS AT THE [facility] Medical History Retrognathia Seasonal allergic rhinitis due to pollen Overweight (BMI 25.0-29.9) Multiple lipomas Dyslipidemia Low back pain Surgical History No pertinent past surgical history Family History Father Diabetes H/O ETOH abuse Mother Breast cancer Diabetes Son In good health Son In good health Social History Housing: House Alcohol intake: never Patient Tobacco Use Status: Former Tobacco user Tobacco use type: Cigarette e-Cigarette/Vaping Use: Never Used Second Hand Smoke Exposure: No service: No Current occupational status: employed Current occupational exposures/hazards: No Cognitive needs: No Hearing needs: No Vision needs: Yes Review of Systems Const All systems reviewed & are unremarkable except as noted in HPI and below Eyes Reports no additional complaints ENT Reports no additional complaints and Reports nasal congestion (Intermittent) Card Denies chest pain, Denies irregular heart rhythm and Denies leg edema Resp Reports wheezing (Occasional) GI Reports no additional complaints Reports no additional complaints Musc Reports no additional complaints Skin/Breast Reports system reviewed and no additional complaints, except as documented Neuro Reports no additional complaints Psych Reports no additional complaints Endo Reports no additional complaints Aller/Immun Reports wheezing (Occasional) Physical Exam Vital Signs: Last Vital Signs Pulse 78 01/29/24 14:34 BP 102/68 01/29/24 14:34 Pulse Ox 97 01/29/24 14:34 Oxygen Delivery Method Room Air 01/29/24 14:34 BMI result Body Mass Index 30.3 Const General: healthy appearing, comfortable, no acute distress, alert and awake Orientation/consciousness: patient oriented x3 HEENT Head: Yes normal to inspection General nose exam: No nasal polyps present and No nasal discharge present Face and sinus: Yes sinuses nontender Mouth: oropharynx normal Teeth and gingiva: other (Retroganthia of the lower jaw) Throat: Yes posterior oropharynx normal Eyes General: appearance normal, both eyes and all related structures Neck Neck: Yes normal visual inspection, Yes no lymphadenopathy, Yes trachea midline and Yes no JVD Thyroid: Thyroid normal Chest Chest palpation & inspection: normal inspection of the chest, normal palpation of entire chest wall and no tenderness Resp Effort & Inspection: normal respiratory effort Auscultation: clear to auscultation bilaterally, no crackles and no wheezes Cardio Palpation: normal PMI Rate: regular rate Rhythm: regular rhythm Heart sounds: no gallops and no murmurs Peripheral pulses: Peripheral pulses 2+ throughout GI Palpation (GI): Soft to palpation, Tenderness to palpation present (GI), No hepatosplenomegaly present and Palpable mass present Auscultation: normal bowel sounds Back/Spine/Pelvis Thoracic/Lumbar Spine: thoracic and lumbar spine normal to inspection Skin General skin exam: no rashes or lesions noted Neuro General: patient oriented x3 and no focal motor deficits Cranial nerves: Yes CN's II-XII intact bilaterally Extrem General: Yes normal to inspection, Yes no clubbing, cyanosis or edema and Yes no calf tenderness Psych Appearance: grossly normal and well kempt Speech and movement: Normal speech and movement present Results Reviewed Results Reviewed: The compliance report for the last 30 nights is reviewed and he has used 22/30 nights, 73%. Average use it per night 3 hours 18 minutes. There is moderate amount of air leak. Residual AHI 1.4 Assessment & Plan Assessment & Plan (1) Retrognathia: Comment: He has retro ganthia of the lower jaw which seems to be the main cause of his obstructive sleep apnea Code(s): M26.19 - Other specified anomalies of jaw-cranial base relationship Category: Medical Plan: Av try to educated the patient and explained that his sleep apnea would probably be a permanent issue that needs to be treated. (2) YOBANI (obstructive sleep apnea): Comment: Patient has moderately severe obstructive sleep apnea. It seems to be primarily due to retroganthia of the lower jaw, And partly contributed by being overweight. He is using CPAP but has been somewhat suboptimal, .mainly because of poor understanding Code(s): G47.33 - Obstructive sleep apnea (adult) (pediatric) Category: Medical Plan: Educated about the use of CPAP. Advise that he has to use it every night and for at least 4-5 hours every night. If he takes long naps during the daytime he should use CPAP during the daytime as well. (3) Allergic rhinitis: Comment: He has the intermittent seasonal allergic rhinitis, which is controlled at this time. Code(s): J30.9 - Allergic rhinitis, unspecified Category: Medical Plan: OK to use loratadine 10 mg once a day p.r.n.. Coding Level of Care Code Est Pt Level 3 (11480) Diagnoses Retrognathia M26.19 YOBANI (obstructive sleep apnea) G47.33 Allergic rhinitis J30.9
== END 2024-01-29 15:04 | disposition home or self-care (01) ==
PROVIDERS: PCP Internal Medicine; Visit Provider Internal Medicine
DX: M26.19 Other specified anomalies of jaw-cranial base relationship (principal); G47.33 Obstructive sleep apnea (adult) (pediatric); J30.9 Allergic rhinitis, unspecified
CPT/HCPCS: 99213

== ENCOUNTER → 2024-01-29 14:22 | Outpatient (BNVA) | payer OTHER, SELFPAY | PROVIDERS: PCP Internal Medicine; Visit Provider Internal Medicine | DX: G47.33 Obstructive sleep apnea (adult) (pediatric) (principal); M26.19 Other specified anomalies of jaw-cranial base relationship; J30.9 Allergic rhinitis, unspecified; Z99.89 Dependence on other enabling machines and devices | CPT/HCPCS: 99212 ==

== ENCOUNTER 2024-03-26 16:19 | Outpatient (AMB) | payer OTHER, SELFPAY ==
--- NOTE | 2024-03-26 16:19 | A.OFFVIS_ITS ---
Intake Visit Reasons: post void dribbling Intake Note: New Patient presents for initial visit for urinary dribbling Urology Medications: none Blood Thinner: none Control Board Operator Required: Yes Control Board Operator Name: Campos ConnorsEwa Accompanied by: Self / Same As Patient Allergies No Known Allergies Allergy (Verified 03/26/24 16:34) Medication List - Last Reconciled 03/26/24 by VANGIE Martínez cholecalciferol (vitamin D3) 25 mcg PO DAILY 90 days CPAP (CPAP Machine/Device) autoPAP 6-20 cmH2O fenofibrate 54 mg PO DAILY 90 days HPI Comments Details: Manual is a very pleasant 43-year-old British-speaking male patient of Dr.Roca Anders. He has a past medical history of sleep apnea, dyslipidemia, multiple lipomas, seasonal allergies, and retrognathia. He presents to the office today as a new patient for ongoing lower urinary tract symptoms. In discussion with the patient today he reports noting over the last 4-5 years worsening symptoms of nocturia and straining with urination. He reports having followed up with his PCP at which time recommendation was made for urology referral for further assessment evaluation. When asked he does report a history of sleep apnea and is compliant with his CPAP machine. He otherwise denies urinary urgency, urinary frequency, incontinence, hematuria, dysuria, foul smelling urine, changes to urinary stream, flank pain, fever, and or chills. In office urinalysis results reviewed with the patient today. We discussed potential causes for lower urinary tract symptoms patient is experiencing. STALIN offered however deferred. He otherwise offers no other issues or concerns at this time. [facility] Medical History Retrognathia Seasonal allergic rhinitis due to pollen Overweight (BMI 25.0-29.9) Multiple lipomas Dyslipidemia Low back pain Surgical History No pertinent past surgical history Family History Father Diabetes H/O ETOH abuse Mother Breast cancer Diabetes Son In good health Son In good health Social History Housing: House Alcohol intake: never Patient Tobacco Use Status: Former Tobacco user Tobacco use type: Cigarette e-Cigarette/Vaping Use: Never Used Second Hand Smoke Exposure: No service: No Current occupational status: employed Current occupational exposures/hazards: No Cognitive needs: No Hearing needs: No Vision needs: Yes Review of Systems Const All systems reviewed & are unremarkable except as noted in HPI and below Physical Exam Const General: cooperative, healthy appearing, comfortable, no acute distress, well developed, alert and awake Orientation/consciousness: patient oriented x3 Limitations: no limitations HEENT Head: Yes normal to inspection, Yes normocephalic and Yes atraumatic Ears: hearing grossly normal bilaterally Eyes General: appearance normal, both eyes and all related structures Neck Neck: Yes normal visual inspection and Yes trachea midline Chest Chest palpation & inspection: normal inspection of the chest Resp Effort & Inspection: normal respiratory effort and able to speak in complete sentences Cardio Rate: regular rate GI Inspection: Yes normal to inspection General: Yes no CVA tenderness Back/Spine/Pelvis Back: no CVA tenderness Skin General skin exam: no rashes or lesions noted Neuro General: patient oriented x3 Extrem General: Yes normal to inspection Psych Appearance: grossly normal and well kempt Mental Status: mental status grossly normal Speech and movement: Normal speech and movement present and Clear speech present Affect: normal affect Attitude: cooperative Thought process: Normal thought process present Thought content: Normal thought content present Insight: Fair insight present (Psych) Judgement: Fair judgement present (Psych) Results AMB Urinalysis, Automated UA Leukoctes 0 Dax/uL Last Edit by Mulugeta Bonilla on 03/26/24 16:46 UA Nitrite Last Edit by Mulugeta Bonilla on 03/26/24 16:46 UA Urobilinogen 0.2 mg/dL Last Edit by Mulugeta Bonilla on 03/26/24 16:46 UA Protein 0 mg/dL Last Edit by Mulugeta Bonilla on 03/26/24 16:46 UA pH 7.0 Last Edit by Mulugeta Bonilla on 03/26/24 16:46 UA Blood 0 Tre/uL Last Edit by Mulugeta Bonilla on 03/26/24 16:46 UA Specific [place] 1.015 Last Edit by Mulugeta Bonilla on 03/26/24 16:46 UA Ketone Negative Last Edit by Mulugeta Bonilla on 03/26/24 16:46 UA Bilirubin 0 mg/dL Last Edit by Mulugeta Bonilla on 03/26/24 16:46 UA Glucose 0 mg/dL Last Edit by Mulugeta Bonilla on 03/26/24 16:46 Results Reviewed Results Reviewed: Laboratory Last Values Urine pH (Auto) 7.0 03/26/24 16:21 Specific [place] (Auto) 1.015 03/26/24 16:21 Urine Protein (Auto) 0 mg/dL 03/26/24 16:21 Glucose (UA)(Auto) 0 mg/dL 03/26/24 16:21 Urine Ketones (Auto) Negative 03/26/24 16:21 Urine Blood (Auto) 0 Tre/uL 03/26/24 16:21 Urine Bilirubin (Auto) 0 mg/dL 03/26/24 16:21 Urine Urobilinogen (Auto) 0.2 mg/dL 03/26/24 16:21 Leukocyte Esterase (Auto) 0 Dax/uL 03/26/24 16:21 Assessment & Plan Assessment & Plan (1) Nocturia: Code(s): R35.1 - Nocturia Category: Medical (2) Straining during urination: Code(s): R39.16 - Straining to void Category: Medical Plan In office urinalysis results reviewed with the patient today; as noted above. Discussed at length potential causes for lower urinary tract symptoms patient has been experiencing. Discussed obtaining retroperitoneal ultrasound for further assessment evaluation. Will obtain PSA for further assessment evaluation. STALIN offered however deferred. Discussed, educated, stressed the importance of compliance with CPAP machine in relation to lower urinary tract symptoms as well as overall health and well- being. Discussed possible near future in office cystoscopy and or urodynamics for further assessment evaluation. Discussed attempting to sit when voiding to relax pelvis and assist with urination. Follow-up in 1-3 months with imaging and labs to be completed prior; or sooner with any issues, concerns, and or questions. Orders: Orders AMB Urinalysis Automated Today Z13.9 - Encounter for screening, unspecified US retroperitoneal comp Today N39.43 - Post-void dribbling, R35.1 - Nocturia, R39.16 - Straining to void Prostate Specific Antigen Today N40.0 - Benign prostatic hyperplasia without lower urinary tract symptoms Patient Instructions: The patient had an opportunity to ask questions regarding the treatment plan. All questions were answered. Physical exam, labs, and imaging were discussed and reviewed in detail. As well as risks, benefits, and discussion of treatment choices. No major barriers to understanding were identified. The patient expressed understanding and agreement with the above treatment plan. The patient was made aware they should contact our office by phone for worsening of their current condition, the appearance of new symptoms, or with any questions or concerns. Compliance is encouraged with any medications and follow up testing that is ordered. It is a privilege to be allowed the opportunity to participate in? your urological care.? Again, if you have any questions or concerns If you have any questions or concerns please do not hesitate to contact me. The office is [phone]. This note is constructed using voice recognition software. While every effort has been made to ensure accuracy tuckpointer cleaner caulker errors may have been included. Yours sincerely, VANGIE Martínez Coding Level of Care Code New Pt Level 3 (24391) New Pt Prev Care >65yr (29176) Diagnoses Nocturia R35.1 Straining during urination R39.16
== END 2024-03-26 16:36 | disposition home or self-care (01) ==
LOC: HO.HUSH 16:19
PROVIDERS: PCP Internal Medicine; Visit Provider Nurse Practitioner Family
DX: R35.1 Nocturia (principal); R39.16 Straining to void; Z13.9 Encounter for screening, unspecified
CPT/HCPCS: 99203

== ENCOUNTER → 2024-03-26 16:19 | Outpatient (BNVA) | payer OTHER, SELFPAY | PROVIDERS: PCP Internal Medicine; Visit Provider Nurse Practitioner Family | DX: R35.1 Nocturia (principal); R39.16 Straining to void | CPT/HCPCS: 81003; 99202 ==

== ENCOUNTER 2024-03-30 09:53 | Outpatient (REF) | payer OTHER, SELFPAY | END 2024-03-30 09:54 | disposition home or self-care (01) | LOC: HO.LAB 09:53 | PROVIDERS: PCP Internal Medicine; Visit Provider Nurse Practitioner Family | DX: N40.0 Benign prostatic hyperplasia without lower urinary tract symptoms (principal) | CPT/HCPCS: 36415; 84153 ==

== ENCOUNTER 2024-05-03 09:53 | Outpatient (REF) | payer OTHER, SELFPAY ==
--- NOTE | ~2024-05-03 | US_ITS ---
EXAMINATION: US RETROPERITONEAL COMPLETE (RENAL) CLINICAL INFORMATION: Post-void dribbling. COMPARISON: None available. TECHNIQUE: Real-time imaging of the kidneys and bladder. FINDINGS: RIGHT KIDNEY: 10.8 x 5.2 x 6.1 cm (SAG x AP x TRV). The kidney is normal in size, contour, and echogenicity. Renal cortical thickness is normal. No calculi or focal parenchymal lesions. No hydronephrosis. LEFT KIDNEY: 10.2 x 5.2 x 5.8 cm (SAG x AP x TRV). The kidney is normal in size, contour, and echogenicity. Renal cortical thickness is normal. No calculi or focal parenchymal lesions. No hydronephrosis. BLADDER: Partially distended. Bilateral ureteral jets are demonstrated. Prevoid bladder volume is 118 mL. Postvoid bladder volume is 8 mL. PROSTATE GLAND: The prostate volume is 22.6 mL. US/US retroperitoneal comp IMPRESSION: Normal exam Electronically signed by: Taras Monterroso MD 05/21/2024 06:48 PM EST
== END 2024-05-03 09:54 | disposition home or self-care (01) ==
LOC: HO.US 09:53
PROVIDERS: PCP Internal Medicine; Visit Provider Nurse Practitioner Family
DX: R35.1 Nocturia (principal); R39.16 Straining to void; N39.43 Post-void dribbling
CPT/HCPCS: 76770

== ENCOUNTER 2024-05-13 14:53 | Outpatient (AMB) | payer OTHER, SELFPAY ==
--- NOTE | 2024-05-13 14:55 | MHC.OFFVIS ---
Intake Visit Reasons: 2M PSA(set) Intake Note: Patient presents today for follow up on: nocturia, psa and lab results Imaging Completed: 05/03/24 PSA: 0.50 Urology Medications: none Blood Thinner: none PVR: 13ml's Foxpro Developer Required: Yes Foxpro Developer Name: [id number] Accompanied by: Self / Same As Patient Allergies No Known Allergies Allergy (Verified 05/13/24 15:50) Medication List - Last Reconciled 05/13/24 by VANGIE Martínez cholecalciferol (vitamin D3) 25 mcg PO DAILY 90 days CPAP (CPAP Machine/Device) autoPAP 6-20 cmH2O fenofibrate 54 mg PO DAILY 90 days HPI Comments Details: Manual is a very pleasant 44-year-old English-speaking male patient of Dr. Amadou Anders. He has a past medical history of sleep apnea, dyslipidemia, multiple lipomas, seasonal allergies, and retrognathia. He presents to the office today for follow-up of his ongoing lower urinary tract symptoms. Of note, patient was seen approximately 6 weeks ago as a new patient at which time a PSA and retroperitoneal ultrasound were ordered for further assessment evaluation. These results were reviewed with the patient today. Bilateral kidneys are normal in size, contour, and echogenicity. Bilateral kidneys with no calculi, lesions, and or hydronephrosis. The bladder is partially distended. Bilateral ureteral jets are demonstrated. Pre void bladder volume is approximately 120 mL. Postvoid bladder volume is a proximally 10 mL. The prostate volume is a proximally 23mL. Normal retroperitoneal ultrasound. PSA 03/26 0.5 Testosterone 01/18 286, 01/23 258 Patient reports his main concern is his flow of urination as well as feeling the need to strain with urination. Reports feeling episodes of nocturia have improved with compliance in his CPAP machine. He otherwise denies urinary urgency, urinary frequency, incontinence, hematuria, dysuria, foul smelling urine, flank pain, fever, and or chills. In office urinalysis results reviewed with the patient today. We discussed potential causes for lower urinary tract symptoms patient is experiencing. We discussed trial of alpha-jennifer as well as low-dose Cialis given patient with borderline low testosterone. He also reports noting issues with maintaining his erections at times. PVR 13 mLs. He otherwise offers no other issues or concerns at this time. [facility] Medical History Retrognathia Seasonal allergic rhinitis due to pollen Overweight (BMI 25.0-29.9) Multiple lipomas Dyslipidemia Low back pain Surgical History No pertinent past surgical history Family History Father Diabetes H/O ETOH abuse Mother Breast cancer Diabetes Son In good health Son In good health Social History Housing: House Alcohol intake: never Patient Tobacco Use Status: Former Tobacco user Tobacco use type: Cigarette e-Cigarette/Vaping Use: Never Used Second Hand Smoke Exposure: No service: No Current occupational status: employed Current occupational exposures/hazards: No Cognitive needs: No Hearing needs: No Vision needs: Yes Review of Systems Const All systems reviewed & are unremarkable except as noted in HPI and below Physical Exam Const General: cooperative, healthy appearing, comfortable, no acute distress, well developed, alert and awake Orientation/consciousness: patient oriented x3 Limitations: no limitations HEENT Head: Yes normal to inspection, Yes normocephalic and Yes atraumatic Ears: hearing grossly normal bilaterally Eyes General: appearance normal, both eyes and all related structures Neck Neck: Yes normal visual inspection and Yes trachea midline Chest Chest palpation & inspection: normal inspection of the chest Resp Effort & Inspection: normal respiratory effort and able to speak in complete sentences Cardio Rate: regular rate GI Inspection: Yes normal to inspection General: Yes no CVA tenderness Back/Spine/Pelvis Back: no CVA tenderness Skin General skin exam: no rashes or lesions noted Neuro General: patient oriented x3 Extrem General: Yes normal to inspection Psych Appearance: grossly normal and well kempt Mental Status: mental status grossly normal Speech and movement: Normal speech and movement present and Clear speech present Affect: normal affect Attitude: cooperative Thought process: Normal thought process present Thought content: Normal thought content present Insight: Fair insight present (Psych) Judgement: Fair judgement present (Psych) Office Procedures Post Void Residual Post Residual Void Post Void Residual (PVR): 13 [id number] Void Residual by ultrasound Results AMB Urinalysis, Automated UA Leukoctes 15 Dax/uL Last Edit by Mulugeta Bonilla on 05/13/24 15:31 UA Nitrite Last Edit by [employer]Sjonatan Bonilla on 05/13/24 15:31 UA Urobilinogen 0.2 mg/dL Last Edit by Mulugeta Bonilla on 05/13/24 15:31 UA Protein 100 mg/dL Last Edit by Mulugeta Bonilla on 05/13/24 15:31 UA pH 6.0 Last Edit by [employer]Sjonatan Bonilla on 05/13/24 15:31 UA Blood 0 Tre/uL Last Edit by [employer]Sjonatan Bonilla on 05/13/24 15:31 UA Specific [place] 1.020 Last Edit by [email or web address] [employer] on 05/13/24 15:31 UA Ketone Last Edit by [email or web address] [employer] on 05/13/24 15:31 UA Bilirubin 0 mg/dL Last Edit by [employer]Sjonatan Bonilla on 05/13/24 15:31 UA Glucose 0 mg/dL Last Edit by [employer]Sjonatan Bonilla on 05/13/24 15:31 Results Reviewed Results Reviewed: Laboratory Last Values Urine pH (Auto) 6.0 05/13/24 15:29 Specific [place] (Auto) 1.020 05/13/24 15:29 Urine Protein (Auto) 100 mg/dL 05/13/24 15:29 Glucose (UA)(Auto) 0 mg/dL 05/13/24 15:29 Urine Blood (Auto) 0 Tre/uL 05/13/24 15:29 Urine Bilirubin (Auto) 0 mg/dL 05/13/24 15:29 Urine Urobilinogen (Auto) 0.2 mg/dL 05/13/24 15:29 Leukocyte Esterase (Auto) 15 Dax/uL 05/13/24 15:29 Date of Service: 05/03/24 EXAMINATION: US RETROPERITONEAL COMPLETE (RENAL) FINDINGS: RIGHT KIDNEY: 10.8 x 5.2 x 6.1 cm (SAG x AP x TRV). The kidney is normal in size, contour, and echogenicity. Renal cortical thickness is normal. No calculi or focal parenchymal lesions. No hydronephrosis. LEFT KIDNEY: 10.2 x 5.2 x 5.8 cm (SAG x AP x TRV). The kidney is normal in size, contour, and echogenicity. Renal cortical thickness is normal. No calculi or focal parenchymal lesions. No hydronephrosis. BLADDER: Partially distended. Bilateral ureteral jets are demonstrated. Prevoid bladder volume is 118 mL. Postvoid bladder volume is 8 mL. PROSTATE GLAND: The prostate volume is 22.6 mL. IMPRESSION: Normal exam Assessment & Plan Assessment & Plan (1) Straining during urination: Code(s): R39.16 - Straining to void Category: Medical (2) Urinary dribbling: Code(s): N39.43 - Post-void dribbling Category: Medical (3) Erectile dysfunction: Code(s): N52.9 - Male erectile dysfunction, unspecified Category: Medical Plan In office urinalysis results reviewed with the patient today; as noted above. PVR 13 mL. Recent retroperitoneal ultrasound results reviewed with the patient today; as noted above. Recent PSA results reviewed with the patient today; as noted above. We discussed at length potential causes of weak urinary stream as well as straining with urination. We discussed importance of compliance with CPAP machine for improvement in lower urinary tract symptoms, ED, as well as overall health and well-being. We discussed possible near future in office cystoscopy for further assessment evaluation. Start Cialis and Flomax as discussed and prescribed. We discussed lifestyle modifications to assist with erectile dysfunction. We discussed pelvic floor exercises as well as attempting to sit when voiding to relax pelvis to assist with bladder emptying and straining with urination. Will obtain testosterone, free testosterone, LH, FSH, estradiol, and prolactin for further assessment evaluation. Follow-up in 3 months with labs and PVR to be completed prior; or sooner with any issues, concerns, and or questions Orders: Orders AMB Urinalysis Automated 05/13/24 Z13.9 - Encounter for screening, unspecified AMB Post Void Residual by ultrasound 05/13/24 R35.1 - Nocturia Sex Hormone Binding Globulin 05/13/24 N52.9 - Male erectile dysfunction, unspecified, E29.1 - Testicular hypofunction Testosterone, Free/Total 05/13/24 N52.9 - Male erectile dysfunction, unspecified Estradiol Ultra Sensitive 05/13/24 N52.9 - Male erectile dysfunction, unspecified, E29.1 - Testicular hypofunction Lutenizing Hormone 05/13/24 N52.9 - Male erectile dysfunction, unspecified, E29.1 - Testicular hypofunction Prolactin 05/13/24 N52.9 - Male erectile dysfunction, unspecified, E29.1 - Testicular hypofunction Follicle Stimulating Hormone 05/13/24 N52.9 - Male erectile dysfunction, unspecified Medications: New tamsulosin 0.4 mg PO BEDTIME 30 caps 3RF 30 days R35.1 - Nocturia, N40.1 - Benign prostatic hyperplasia with lower urinary tract symptoms tadalafil (Cialis) [facility] [id number] 5 mg PO DAILY 90 tabs 0RF 90 days Patient Instructions: The patient had an opportunity to ask questions regarding the treatment plan. All questions were answered. Physical exam, labs, and imaging were discussed and reviewed in detail. As well as risks, benefits, and discussion of treatment choices. No major barriers to understanding were identified. The patient expressed understanding and agreement with the above treatment plan. The patient was made aware they should contact our office by phone for worsening of their current condition, the appearance of new symptoms, or with any questions or concerns. Compliance is encouraged with any medications and follow up testing that is ordered. It is a privilege to be allowed the opportunity to participate in? your urological care.? Again, if you have any questions or concerns If you have any questions or concerns please do not hesitate to contact me. The office is [phone]. This note is constructed using voice recognition software. While every effort has been made to ensure accuracy medical charge entry specialist errors may have been included. Yours sincerely, VANGIE Martínez Coding Level of Care Code Est Pt Level 4 (43450) Diagnoses Straining during urination R39.16 Urinary dribbling N39.43 Erectile dysfunction N52.9 CPT Codes Post Residual Void - PVR CPT Code: 72185-Jhhj Void Residual by ultrasound ([id number])
== END 2024-05-13 15:30 | disposition home or self-care (01) ==
LOC: HO.HUSH 14:54
PROVIDERS: PCP Internal Medicine; Visit Provider Nurse Practitioner Family
DX: R39.16 Straining to void (principal); N39.43 Post-void dribbling; N52.9 Male erectile dysfunction, unspecified
CPT/HCPCS: 99214

== ENCOUNTER → 2024-05-13 14:53 | Outpatient (BNVA) | payer OTHER, SELFPAY | PROVIDERS: PCP Internal Medicine; Visit Provider Nurse Practitioner Family | DX: N40.1 Benign prostatic hyperplasia with lower urinary tract symptoms (principal); R35.1 Nocturia; N52.9 Male erectile dysfunction, unspecified; E29.1 Testicular hypofunction; R39.16 Straining to void; N39.43 Post-void dribbling | CPT/HCPCS: 51798; 81003; 99212 ==

== ENCOUNTER 2024-06-29 10:04 | Outpatient (REF) | payer OTHER, SELFPAY ==
[2024-07-04 14:08] LABS: Follicle Stimulating Hormone 10.7 mIU/mL (1.4-12.8); Lutenizing Hormone 13.1 mIU/mL (1.5-9.3); Prolactin 8.9 ng/mL (2.0-18.0); Sex Hormone Binding Globulin 10 nmol/L (10-50)
[2024-07-05 06:33] LABS: Estradiol Ultra Sensitive 22 pg/mL (< OR = 29)
[2024-07-09 20:34] LABS: Testosterone, Free 55.4 pg/mL (35.0-155.0); Testosterone, Total 205 ng/dL (250-1100)
== END 2024-06-29 10:05 | disposition home or self-care (01) ==
LOC: HO.LAB 10:04
PROVIDERS: PCP Internal Medicine; Visit Provider Nurse Practitioner Family
DX: N52.9 Male erectile dysfunction, unspecified (principal); E29.1 Testicular hypofunction
CPT/HCPCS: 36415; 82670; 83001; 83002; 84146; 84270; 84402; 84403

== ENCOUNTER 2024-07-25 16:43 | Outpatient (AMB) | payer OTHER, SELFPAY ==
--- NOTE | 2024-07-25 16:48 | A.OFFPC_ITS ---
Vital Signs 07/25/24 16:49 Height 5 ft 5 in Weight 177 lb BMI 29.5 BP 110/72 Blood Pressure Location Lt brachial Position Sitting Intake Visit Reasons: Follow Up Intake Note: Patient here for a follow up Case Packer And Sealer Required: Yes Case Packer And Sealer Language: Folder Inspector Name: Eri Anders MD Information Interpreted: non-clinical & clinical Accompanied by: Self / Same As Patient Allergies No Known Allergies Allergy (Verified 07/25/24 16:57) Medication List - Last Reconciled 07/25/24 by Eri Anders MD cholecalciferol (vitamin D3) 25 mcg PO DAILY 90 days CPAP (CPAP Machine/Device) autoPAP 6-20 cmH2O fenofibrate 54 mg PO DAILY 90 days tamsulosin 0.4 mg PO BEDTIME 30 days Tobacco use date assessed: 07/25/24 Dental Screening Dental Screen Date: 07/25/24 Did you have a dental visit in the last 12 months?: Yes Did you have a dental problem in the last 6 months where you did not have access to dental care?: No Was dental information given to patient?: Patient has dentist HPI HPI Comments History of Present Illness Details The patient is a 44-year-old male presenting with issues related to Benign Prostatic Hyperplasia and sleep apnea. The patient reports that his symptoms of prostate issues have improved, particularly noting a decrease in nocturia. He also mentions previously smoking but has since quit, and denies alcohol consumption. He uses a CPAP machine effectively for sleep apnea management and reports no longer snoring, as observed by his . His medication regimen includes tamsulosin for prostate symptoms and fenofibrate for triglycerides. Despite these managed conditions, the patient acknowledges his overweight status. Has hypertriglyceridemia and labs will be order for next office visit. Also has low vitamin-D on supplements. Complains of nasal congestion related to allergic rhinitis that bothers him. Has erectile dysfunction and low testosterone follow by Urology. [facility] Medical History (Updated 07/25/24 @ 20:09 by Eri Anders MD) Retrognathia Seasonal allergic rhinitis due to pollen Overweight (BMI 25.0-29.9) Multiple lipomas Dyslipidemia Low back pain Surgical History No pertinent past surgical history Family History Father Diabetes H/O ETOH abuse Mother Breast cancer Diabetes Son In good health Son In good health Social History Housing: House Alcohol intake: never Patient Tobacco Use Status: Former Tobacco user Tobacco use type: Cigarette e-Cigarette/Vaping Use: Never Used Second Hand Smoke Exposure: No service: No Current occupational status: employed Current occupational exposures/hazards: No Cognitive needs: No Hearing needs: No Vision needs: Yes Questionnaire PHQ-9 Over the last 2 weeks, how often have you been bothered by any of the following problems? 1. Little interest or pleasure in doing things: not at all 2. Feeling down, depressed, or hopeless: not at all 3. Trouble falling or staying asleep, or sleeping too much: not at all 4. Feeling tired or having little energy: not at all 5. Poor appetite or overeating: not at all 6. Feeling bad about yourself - or that you are a failure or have let yourself or your family down: not at all 7. Trouble concentrating on things, such as reading the newspaper or watching television: not at all 8. Moving or speaking so slowly that other people could have noticed. Or the opposite - being so fidgety or restless that you have been moving around a lot more than usual: not at all 9. Thoughts that you would be better off or of hurting yourself in some way: not at all Total score: 0 Depression Screening Interpretation: Negative Depression Screening Done: Yes 19631 - PHQ-9 Billing: Yes Source: Developed by Drs. Michael Manzanares, Cher Weeks, Luis Blanco and colleagues, with an educational chad from [employer]. Thrive Questionnaire Date Thrive assessed: 07/25/24 I am a: Patient What is your living situation today?: I have a steady place to live Within the past 12 months, did the food you bought not last and you didn't have the money to get more?: Never true Within the past 12 months, did you worry whether your food would run out before you got money to buy more?: Never true Do you have trouble paying for medicines?: No Do you have trouble getting transportation to medical appointments?: No Do you have trouble paying your heating and electricity bill?: No Do you have trouble taking care of your child, family member or friend?: No Do you have trouble with day-to-day activities such as bathing, preparing meals, shopping, managing finances, etc.?: No Are you currently unemployed and looking for a job?: No Are you interested in more education?: No Please select the resources that you would like help with: None Currently or been in a relationship where the following occur: No concerns reported THRIVE Score: 0 AUDIT C Alcohol Use Questionnaire (AUDIT-C) 1. How often do you have a drink containing alcohol?: Never Total Score: 0 Score Reviewed/Action Taken: No CHEMO-7 AMB Questionnaire CHEMO-7 Date CHEMO - 7 assessed: 07/25/24 Feeling nervous, anxious, or on edge: 0 = Not at all Not being able to stop or control worryin = Not at all Worrying too much about different things: 0 = Not at all Trouble relaxin = Not at all Being so restless that it is hard to sit still: 0 = Not at all Becoming easily annoyed or irritable: 0 = Not at all Feeling afraid as if something awful might happen: 0 = Not at all Total CHEMO-7 score (0-4 normal; 5-9 mild; 10-14 moderate; 15-21 severe): 0 Source: Developed by Drs. Michael Manzanares, Cher Weeks, Luis Blanco and colleagues, with an educational chad from [employer]. CEHMO-7 Assessment Billing CHEMO-7 Assessment Tool: CHEMO-7 Assessment 94355 Review of Systems Const All systems reviewed & are unremarkable except as noted in HPI and below Card Denies chest pain at rest, Denies chest pain with activity, Denies edema, Denies irregular heart rhythm, Denies claudication, Denies dyspnea, Denies dyspnea on exertion, Denies orthopnea, Denies paroxysmal nocturnal dyspnea and Denies slow heart rate Resp Denies cough, Denies dyspnea and Denies dyspnea on exertion GI Denies abdominal pain, Denies change in bowel habits, Denies excessive flatus, Denies nausea and Denies vomiting Neuro Denies behavioral changes and Denies lack of coordination Psych Denies behavioral changes Physical exam (Primary Care) Vital Signs: Last Vital Signs BP 110/72 07/25/24 16:49 BMI result Body Mass Index 29.5 Tobacco/Smoking Status: Tobacco use Status Tobacco use date assessed 07/25/24 07/25/24 16:52 Patient Tobacco Use Status Former Tobacco user 07/25/24 16:52 Tobacco use type Cigarette 07/25/24 16:52 e-Cigarette/Vaping Use Never Used 07/25/24 16:52 PHQ-9: PHQ-9 Score PHQ-9: Total score 0 07/25/24 17:11 Depression Screening Interpretation: Negative Thrive Assessment: Date of Thrive Assessment Date Thrive assessed 07/25/24 07/25/24 16:52 Currently or been in a relationship where the following occur: No concerns reported Resp Effort & Inspection: normal respiratory effort Auscultation: clear to auscultation bilaterally Cardio Jugular venous distension: no JVD Rate: regular rate Rhythm: regular rhythm Heart sounds: S1 normal heart sound present and S2 normal heart sound present Extrem General: Yes full ROM Office Procedures Flu Questionnaire Does the patient have a severe egg allergy?: No Immunizations Fluarix Triv [id number] (PF) 45 mcg (15 mcg x 3)/0.5 mL IM syringe Performing Provider: Eri Anders MD Performing [facility] [place] [facility] Documented (not given) by: CARLY Astorga on 07/25/24 17:11 Reason Not Given: Patient Refused Coding Level of Care Code Est Pt Level 4 (26540) Complex EM visit Add On G2211 Diagnoses Hypertriglyceridemia E78.1 Allergic rhinitis J30.9 YOBANI (obstructive sleep apnea) G47.33 Erectile dysfunction N52.9 Hypovitaminosis D E55.9 BPH (benign prostatic hyperplasia) N40.0 Testosterone deficiency E34.9 Additional Codes CHEMO-7 Assessment Billing - CHEMO-7 Assessment Tool: CHEMO-7 Assessment 64669 ([id number]) PHQ-9 - 55160 - PHQ-9 Billing: Yes ([id number]) Time Spent (min) 22 Assessment & Plan Assessment & Plan (1) Hypertriglyceridemia: Code(s): E78.1 - Pure hyperglyceridemia Category: Medical (2) Allergic rhinitis: Comment: He has the intermittent seasonal allergic rhinitis, which is controlled at this time. Code(s): J30.9 - Allergic rhinitis, unspecified Category: Medical (3) YOBANI (obstructive sleep apnea): Comment: Patient has moderately severe obstructive sleep apnea. It seems to be primarily due to retroganthia of the lower jaw, And partly contributed by being overweight. He is using CPAP but has been somewhat suboptimal, .mainly because of poor understanding Code(s): G47.33 - Obstructive sleep apnea (adult) (pediatric) Category: Medical (4) Erectile dysfunction: Code(s): N52.9 - Male erectile dysfunction, unspecified Category: Medical (5) Hypovitaminosis D: Code(s): E55.9 - Vitamin D deficiency, unspecified Category: Medical (6) BPH (benign prostatic hyperplasia): Code(s): N40.0 - Benign prostatic hyperplasia without lower urinary tract symptoms Category: Medical (7) Testosterone deficiency: Code(s): E34.9 - Endocrine disorder, unspecified Category: Medical Plan - Continue and monitor the use of CPAP therapy for effective management of sleep apnea. - Maintain current medication regimen, including fenofibrate for hyperlipidemia and tamsulosin for benign prostatic hyperplasia. - Address overweight status with lifestyle modifications aimed at weight reduction and improved physical fitness. Patient was informed and verbally consented to the use of an ambient scribe for clinic note documentation during this visit. I reviewed the patient's progress with his current management plan for sleep apnea and benign prostatic hyperplasia. The patient reports improvement with nocturia and cessation of snoring. We discussed the importance of continued adherence to CPAP therapy and the current medication regimen. In light of his overweight status, we had a detailed discussion about lifestyle modifications aimed at achieving a healthier weight, which include dietary adjustments and increased physical activity. The patient expressed understanding and agreement with the outlined plan. Orders: Orders Influenza [id number] Immunization Today Z23 - Encounter for immunization Medications: New fluticasone propionate 50 mcg/actuation (Flonase Allergy Relief) administer into each nostril 1 spray intranasal DAILY 16 grams 0RF 30 days cetirizine (All Day Allergy (cetirizine)) 10 mg PO DAILY PRN 90 tabs 1RF allergy symptoms 90 days J30.9 - Allergic rhinitis, unspecified Patient Instructions: - Continue using the CPAP machine nightly. - Take medications as prescribed, including fenofibrate and tamsulosin. - Begin a regimen focused on dietary changes and increased physical activity to address overweight issues. - Return for follow-up visit as instructed to assess progress.
[2024-07-25 16:49] VITALS: BP 110/72; BMI 29.5
== END 2024-07-25 17:14 | disposition home or self-care (01) ==
PROVIDERS: PCP Internal Medicine; Visit Provider Internal Medicine
DX: E78.1 Pure hyperglyceridemia (principal); J30.9 Allergic rhinitis, unspecified; G47.33 Obstructive sleep apnea (adult) (pediatric); N52.9 Male erectile dysfunction, unspecified; E55.9 Vitamin D deficiency, unspecified; N40.0 Benign prostatic hyperplasia without lower urinary tract symptoms; E34.9 Endocrine disorder, unspecified; Z23 Encounter for immunization

== ENCOUNTER → 2024-07-25 16:43 | Outpatient (BNVA) | payer OTHER, SELFPAY | PROVIDERS: PCP Internal Medicine; Visit Provider Internal Medicine | DX: E78.1 Pure hyperglyceridemia (principal); J30.9 Allergic rhinitis, unspecified; G47.33 Obstructive sleep apnea (adult) (pediatric); N52.9 Male erectile dysfunction, unspecified; E55.9 Vitamin D deficiency, unspecified; N40.0 Benign prostatic hyperplasia without lower urinary tract symptoms; E34.9 Endocrine disorder, unspecified | CPT/HCPCS: 90471; 96127; 99212 ==

== ENCOUNTER 2024-08-13 15:01 | Outpatient (AMB) | payer OTHER, SELFPAY ==
--- NOTE | 2024-08-13 15:17 | MHC.OFFVIS ---
Intake Visit Reasons: 3 month follow up/ labs/ PVR(set) Intake Note: Patient presents today for follow up on: nocturia and erectile dysfunction Testosterone: 205, Free Testosterone: 55.4 Urology Medications: tamsulosin, tadalafil Blood Thinner: none PVR: 41ml's Medical Doctor Md/Medical Director Required: Yes Medical Doctor Md/Medical Director Services: Medical Doctor Md/Medical Director Present Medical Doctor Md/Medical Director Name: DEVONTE LACEY [facility] Accompanied by: Self / Same As Patient Allergies No Known Allergies Allergy (Verified 08/13/24 15:48) Medication List - Last Reconciled 08/13/24 by SUJIT Martínez- cetirizine (All Day Allergy (cetirizine)) 10 mg PO DAILY PRN 90 days cholecalciferol (vitamin D3) 25 mcg PO DAILY 90 days CPAP (CPAP Machine/Device) autoPAP 6-20 cmH2O fenofibrate 54 mg PO DAILY 90 days fluticasone propionate 50 mcg/actuation (Flonase Allergy Relief) 1 spray intranasal DAILY 30 days tadalafil 5 mg PO DAILY 90 days tamsulosin 0.4 mg PO BEDTIME 90 days HPI Comments Details: Manual is a very pleasant 44-year-old Mongolian-speaking male patient of Dr. Amadou Anders. He has a past medical history of sleep apnea, dyslipidemia, multiple lipomas, seasonal allergies, and retrognathia. He presents to the office today for follow-up of his ongoing lower urinary tract symptoms and ED. Of note, patient was seen approximately 3 months ago at which time hypogonadal labs were ordered for further assessment evaluation. These results were reviewed with the patient today as noted and trended below. Previous workup has also included a retroperitoneal ultrasound 05/26 noting bilateral kidneys with no calculi, lesions, and or hydronephrosis. The bladder is partially distended. Bilateral ureteral jets are demonstrated. Pre void bladder volume is approximately 120 mL. Postvoid bladder volume is a proximally 10 mL. The prostate volume is approximately 23mL. Normal retroperitoneal ultrasound. PSA 03/26 0.5 Testosterone 01/18 286, 01/23 258, 06/25 205 Free testosterone 06/25 55.4 FSH 06/25 10.7 LH 06/25 13.1 Prolactin 06/25 8.9 SHBG 06/25 10 Estradiol 06/25 22 Discussed further treatment options of borderline hypogonadism to include stim testing verses trial of low-dose tadalafil verses initiation of testosterone. Risks and benefits of these interventions were discussed. Patient reports noting improvement in erections with 5 mg of tadalafil daily and would like to continue. He reports noting lower urinary tract symptoms he had been experiencing have significantly improved with compliance in his CPAP machine as well as Flomax daily. He currently denies any bothersome urinary issues or concerns. He reports be happy with current voiding parameters. He denies urinary urgency, urinary frequency, incontinence, hematuria, dysuria, foul smelling urine, flank pain, fever, and or chills. In office urinalysis results reviewed with the patient today. PVR 41ml's. He otherwise offers no other issues or concerns at this time. [facility] Medical History Retrognathia Seasonal allergic rhinitis due to pollen Overweight (BMI 25.0-29.9) Multiple lipomas Dyslipidemia Low back pain Surgical History No pertinent past surgical history Family History Father Diabetes H/O ETOH abuse Mother Breast cancer Diabetes Son In good health Son In good health Social History Housing: House Alcohol intake: never Patient Tobacco Use Status: Former Tobacco user Tobacco use type: Cigarette e-Cigarette/Vaping Use: Never Used Second Hand Smoke Exposure: No service: No Current occupational status: employed Current occupational exposures/hazards: No Cognitive needs: No Hearing needs: No Vision needs: Yes Review of Systems Const All systems reviewed & are unremarkable except as noted in HPI and below Physical Exam Const General: cooperative, healthy appearing, comfortable, no acute distress, well developed, alert and awake Orientation/consciousness: patient oriented x3 Limitations: no limitations HEENT Head: Yes normal to inspection, Yes normocephalic and Yes atraumatic Ears: hearing grossly normal bilaterally Eyes General: appearance normal, both eyes and all related structures Neck Neck: Yes normal visual inspection and Yes trachea midline Chest Chest palpation & inspection: normal inspection of the chest Resp Effort & Inspection: normal respiratory effort and able to speak in complete sentences Cardio Rate: regular rate GI Inspection: Yes normal to inspection General: Yes no CVA tenderness Back/Spine/Pelvis Back: no CVA tenderness Skin General skin exam: no rashes or lesions noted Neuro General: patient oriented x3 Extrem General: Yes normal to inspection Psych Appearance: grossly normal and well kempt Mental Status: mental status grossly normal Speech and movement: Normal speech and movement present and Clear speech present Affect: normal affect Attitude: cooperative Thought process: Normal thought process present Thought content: Normal thought content present Insight: Fair insight present (Psych) Judgement: Fair judgement present (Psych) Office Procedures Post Void Residual Post Residual Void Post Void Residual (PVR): 41 [id number] Void Residual by ultrasound Results AMB Urinalysis, Automated UA Leukoctes 0 Dax/uL Last Edit by Joost on 08/13/24 15:36 UA Nitrite Last Edit by Joost on 08/13/24 15:36 UA Urobilinogen 0.2 mg/dL Last Edit by Joost on 08/13/24 15:36 UA Protein 0 mg/dL Last Edit by Joost on 08/13/24 15:36 UA pH 6.0 Last Edit by Joost on 08/13/24 15:36 UA Blood 0 Tre/uL Last Edit by Joost on 08/13/24 15:36 UA Specific [place] 1.015 Last Edit by Joost on 08/13/24 15:36 UA Ketone Last Edit by Joost on 08/13/24 15:36 UA Bilirubin 0 mg/dL Last Edit by Joost on 08/13/24 15:36 UA Glucose 0 mg/dL Last Edit by Joost on 08/13/24 15:36 Results Reviewed Results Reviewed: Laboratory Last Values Urine pH (Auto) 6.0 08/13/24 15:35 Specific [place] (Auto) 1.015 08/13/24 15:35 Urine Protein (Auto) 0 mg/dL 08/13/24 15:35 Glucose (UA)(Auto) 0 mg/dL 08/13/24 15:35 Urine Blood (Auto) 0 Tre/uL 08/13/24 15:35 Urine Bilirubin (Auto) 0 mg/dL 08/13/24 15:35 Urine Urobilinogen (Auto) 0.2 mg/dL 08/13/24 15:35 Leukocyte Esterase (Auto) 0 Dax/uL 08/13/24 15:35 Assessment & Plan Assessment & Plan (1) Erectile dysfunction: Code(s): N52.9 - Male erectile dysfunction, unspecified Category: Medical (2) Testosterone deficiency: Code(s): E34.9 - Endocrine disorder, unspecified Category: Medical (3) Urinary dribbling: Code(s): N39.43 - Post-void dribbling Category: Medical Plan In office urinalysis results reviewed with the patient today; as noted above. PVR 41 mL. Recent hypogonadism labs reviewed with the patient today as noted and trended above . Continue Cialis and Flomax as prescribed; refills provided We discussed importance of compliance with CPAP machine for improvement in lower urinary tract symptoms, ED, as well as overall health and well-being. We discussed possible near future in office cystoscopy for further assessment evaluation if symptoms arise. We discussed lifestyle modifications to assist with erectile dysfunction. Continue pelvic floor exercises for men to assist with urinary dribbling Will obtain testosterone in 6 months Follow-up in 6 months with lab and PVR to be completed prior; or sooner with any issues, concerns, and or questions Orders: Orders AMB Post Void Residual by ultrasound Today N40.0 - Benign prostatic hyperplasia without lower urinary tract symptoms AMB Urinalysis Automated Today Z13.9 - Encounter for screening, unspecified Testosterone, Free/Total 6 Months E34.9 - Endocrine disorder, unspecified, N52.9 - Male erectile dysfunction, unspecified Medications: New tadalafil [facility] DR33 [id number] 5 mg PO DAILY 90 days 90 tabs 2RF Changed From tamsulosin 0.4 mg PO BEDTIME 30 days 30 caps 3RF N40.1 - Benign prostatic hyperplasia with lower urinary tract symptoms, R35.1 - Nocturia To tamsulosin 0.4 mg PO BEDTIME 90 days 90 caps 2RF N40.1 - Benign prostatic hyperplasia with lower urinary tract symptoms, R35.1 - Nocturia Patient Instructions: The patient had an opportunity to ask questions regarding the treatment plan. All questions were answered. Physical exam, labs, and imaging were discussed and reviewed in detail. As well as risks, benefits, and discussion of treatment choices. No major barriers to understanding were identified. The patient expressed understanding and agreement with the above treatment plan. The patient was made aware they should contact our office by phone for worsening of their current condition, the appearance of new symptoms, or with any questions or concerns. Compliance is encouraged with any medications and follow up testing that is ordered. It is a privilege to be allowed the opportunity to participate in? your urological care.? Again, if you have any questions or concerns If you have any questions or concerns please do not hesitate to contact me. The office is [phone]. This note is constructed using voice recognition software. While every effort has been made to ensure accuracy milieu coordinator errors may have been included. Yours sincerely, VANGIE Martínez Coding Level of Care Code Est Pt Level 3 (00598) Diagnoses Erectile dysfunction N52.9 Testosterone deficiency E34.9 Urinary dribbling N39.43 CPT Codes Post Residual Void - PVR CPT Code: 12871-Pkog Void Residual by ultrasound ([id number])
== END 2024-08-13 16:06 | disposition home or self-care (01) ==
LOC: HO.HUSH 15:01
PROVIDERS: PCP Internal Medicine; Visit Provider Nurse Practitioner Family
DX: N52.9 Male erectile dysfunction, unspecified (principal); E34.9 Endocrine disorder, unspecified; N39.43 Post-void dribbling; Z13.9 Encounter for screening, unspecified
CPT/HCPCS: 99213

== ENCOUNTER → 2024-08-13 15:01 | Outpatient (BNVA) | payer OTHER, SELFPAY | PROVIDERS: PCP Internal Medicine; Visit Provider Nurse Practitioner Family | DX: N52.9 Male erectile dysfunction, unspecified (principal); N39.43 Post-void dribbling; E34.9 Endocrine disorder, unspecified | CPT/HCPCS: 51798; 81003; 99212 ==